=== PATIENT | male | born 1955 | race Caucasian/White ===

== ENCOUNTER 2017-11-02 11:00 | Day surgery (SDC) | payer MEDICARE ==
[2017-10-25 11:45] VITALS: BMI 25.0
[~2017-11-02 11:00] MED LIST: ALPRAZolam 0.25 MG TAB PO PRN; ASPIRIN 325 MG TAB PO STA; SODIUM CHLORIDE 0.9% 1,000 ML in EMPTY BAG 1 BAG IV ONE
[2017-11-02 11:35] LABS: Basophils % (A) 0 %; Eosinophils # (A) 0.1 k/uL (0-0.7); Eosinophils % (A) 1 %; HCT 43.1 % (39.0-53.0); HGB 14.4 gm/dL (13.0-17.5); Lymphocytes # (A) 1.1 k/uL (1.0-4.8); Lymphocytes % (A) 11 %; MCH 33.4 pg (25.0-35.0); MCHC 33.4 g/dL (31.0-37.0); Macrocytosis Slight; Mean Platelet Volume 7.7; Monocytes # (A) 0.6 k/uL (0-1.0); Monocytes % (A) 6 %; Neutrophils # (A) 8.1 k/uL (1.3-7.7); Neutrophils % (A) 80 %; Platelet Count 150 k/uL (150-450); RBC 4.31 m/uL (4.30-5.90); RDW 14.6 % (11.5-15.5); WBC 10.1 k/uL (3.8-10.6)
[2017-11-02] MEDS ORDERED: HYDROmorphone 1 MG/ML 1 ML SYRINGE ONE (11:35)
[2017-11-02 11:50] LABS: Anion Gap 6 mmol/L; Blood Urea Nitrogen 6 mg/dL (9-20); Carbon Dioxide 28 mmol/L (22-30); Chloride 96 mmol/L (98-107); Glucose 104 mg/dL (74-99); Potassium 4.4 mmol/L (3.5-5.1); Sodium 130 mmol/L (137-145)
[2017-11-02] MEDS ORDERED: LIDOCAINE 2% INJ 20 MG/ML IV ONE (11:58)
[2017-11-02] MEDS ORDERED: MIDAZOLAM 2 MG/2 ML VIAL IV ONE (11:59)
[2017-11-02] MEDS ORDERED: fentaNYL (PF) 50 MCG/ML 2 ML AMP IV ONE (12:12)
[2017-11-02] MEDS ORDERED: IOHEXOL 350 MG/ML 125ML BOTTLE INJ ONE (12:21)
[2017-11-02] MEDS ORDERED: SODIUM CHLORIDE 0.9% 1,000 ML IV SCH (12:30)
--- NOTE | 2017-11-02 12:51 | AN ---
ANGIOGRAPHY REPORT DATE OF SERVICE: 11/02/2017 PERFORMING PHYSICIAN: Trevin Esqueda MD, Caddy. PROCEDURES PERFORMED: 1. An abdominal aortogram. 2. Bilateral lower extremities runoff. INDICATION: This is a pleasant 62-year-old gentleman who is known to have peripheral arterial disease and he used to follow up with me in the office and he underwent in the past successful balloon angioplasty of the right SFA for totally occluded right SFA, was struggling with a critical limb ischemia and nonhealing ulcer involving the left mari and left heel. He is following with Dr. Garcia [facility]. The peripheral angiogram was requested for further evaluation. APPROACH: Right common femoral artery. COMPLICATION: None. LEVEL OF SEDATION: Moderate with sedation length of 27 minutes. PROCEDURE DESCRIPTION: After obtaining an informed consent, the patient was brought to the [facility]. The right common femoral artery was cannulated using micropuncture technique, the micropuncture wire passed easily, then I placed a 5-Yemeni sheath in the right common femoral artery. After that, I did an abdominal aortogram and bilateral lower extremities runoff using 5-Yemeni pigtail catheter which was initially placed at the level of the renal arteries and it was pulled into above the bifurcation of the aorta to right and left common iliac arteries. The procedure was completed without any complication. SELECTIVE PERIPHERAL ANGIOGRAM: 1. The abdominal aorta is heavily calcified with mild disease only. 2. COMMON ILIAC ARTERIES: The right and left common iliac arteries appear to have mild disease only. 3. EXTERNAL ILIAC ARTERIES: The right external iliac artery appeared to have a lesion in the range of 60% to 70% and the left external iliac artery appeared to have a lesion in the range of 70%. 4. INTERNAL ILIAC ARTERIES: The right internal iliac artery is patent and the left internal iliac artery is occluded. 5. COMMON FEMORAL ARTERIES: The right common femoral artery appeared to be subtotally occluded and the left common femoral artery appeared to be subtotally occluded as well. 6. PROFUNDA: The right profunda is patent and the left profunda is occluded. 7. SFA: The right SFA is heavily calcified with diffuse disease up to about 70% to 80% and the left SFA appeared to be occluded from the ostium to the proximal portion. 8. POPLITEAL: The right and left popliteal appeared to have mild to moderate diffuse disease. 9. BELOW THE KNEE: There are 3 vessels runoff below the knee on the right side and 1 vessel runoff below the knee on the left side with AT. CONCLUSION: 1. 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 2. Severe femoral-popliteal disease with severe bilateral common femoral artery disease. 3. Severe bilateral SFA disease. 4. Severe ofuej-jat-sxyl disease on the left side. POSTPROCEDURE MANAGEMENT: 1. At this point, maximize medical treatment. 2. I do feel that the patient will benefit from MINESWEEPING OFFICER of the of the left external iliac and left femoral artery. The alternative is to do a MINESWEEPING OFFICER of the left external iliac and endarterectomy of the left common femoral artery. MMODL / IJN: [id number] /
--- NOTE | 2017-11-02 13:00 | IR ---
EXAMINATION TYPE: IR angio abdominal w runoff DATE OF EXAM: 11/02/2017 COMPARISON: NONE HISTORY: Peripheral vascular occlusive disease. Fluoroscopy was provided to the referring clinician. See dictated report from cardiology.
[2017-11-02 16:35] VITALS: TEMP 98.9
[2017-11-02 16:46] VITALS: BP 152/69; PULSE 63; RESP 18
== END 2017-11-02 17:00 | disposition home or self-care (01) ==
LOC: CATHCVL 11:00
PROVIDERS: ATTEND Internal Medicine Interventional Cardiology
DX: I70.229 Atherosclerosis of native arteries of extremities with rest pain, unspecified extremity (principal); L97.429 Non-pressure chronic ulcer of left heel and midfoot with unspecified severity; L97.829 Non-pressure chronic ulcer of other part of left lower leg with unspecified severity; I70.0 Atherosclerosis of aorta; I77.9 Disorder of arteries and arterioles, unspecified; R94.39 Abnormal result of other cardiovascular function study; I10 Essential (primary) hypertension; F17.210 Nicotine dependence, cigarettes, uncomplicated; Z79.899 Other long term (current) drug therapy
CPT/HCPCS: 36200; 75625; 75716; 80048; 85025; C1894; C1769 ×4; J2001; J2250; J3010; J1170; Q9967

== ENCOUNTER 2017-12-04 07:58 | Day surgery (SDC) | payer MEDICARE ==
[2017-11-30 09:56] VITALS: BMI 25.0
[~2017-12-04 07:58] MED LIST changes: +ALPRAZolam 0.5 MG TAB PO PRN; +NITROGLYCERIN SL TABS 0.4 MG TAB SUBLINGUAL PRN
[2017-12-04] MEDS ORDERED: ASPIRIN 81 MG ONE (08:17)
[2017-12-04 08:28] LABS: Basophils % (A) 0 %; Eosinophils # (A) 0.1 k/uL (0-0.7); Eosinophils % (A) 1 %; HCT 33.6 % (39.0-53.0); HGB 11.8 gm/dL (13.0-17.5); Lymphocytes # (A) 0.8 k/uL (1.0-4.8); Lymphocytes % (A) 8 %; MCH 34.6 pg (25.0-35.0); MCHC 35.1 g/dL (31.0-37.0); MCV 98.5 fL (80.0-100.0); Mean Platelet Volume 7.1; Monocytes # (A) 0.8 k/uL (0-1.0); Monocytes % (A) 8 %; Neutrophils # (A) 8.8 k/uL (1.3-7.7); Neutrophils % (A) 82 %; Platelet Count 204 k/uL (150-450); RBC 3.41 m/uL (4.30-5.90); RDW 12.8 % (11.5-15.5); WBC 10.8 k/uL (3.8-10.6)
[2017-12-04 09:11] LABS: Anion Gap 10 mmol/L; Blood Urea Nitrogen 8 mg/dL (9-20); Calcium 8.5 mg/dL (8.4-10.2); Carbon Dioxide 24 mmol/L (22-30); Chloride 92 mmol/L (98-107); Glucose 124 mg/dL (74-99); Potassium 4.1 mmol/L (3.5-5.1); Sodium 126 mmol/L (137-145)
[2017-12-04] MEDS: MIDAZOLAM 2 MG/2 ML VIAL IV ONE ×2 (09:20→10:23)
[2017-12-04] MEDS ORDERED: fentaNYL (PF) 50 MCG/ML 2 ML AMP IV ONE (09:20)
[2017-12-04] MEDS ORDERED: IOHEXOL 350 MG/ML 125ML BOTTLE INJ ONE (10:44)
[2017-12-04] MEDS ORDERED: IODIXANOL 320 MG/ML 100 ML INTRAARTER ONE (10:44)
[2017-12-04] MEDS ORDERED: RX INFO: IV CONTRAST WAS GIVEN 1 EACH MISC MISCELLANE PRN (10:53)
[2017-12-04] MEDS ORDERED: SODIUM CHLORIDE 0.9% 1,000 ML IV SCH (11:00)
--- NOTE | 2017-12-04 11:09 | IR ---
EXAMINATION TYPE: IR angio extremity LT DATE OF EXAM: 12/04/2017 COMPARISON: NONE HISTORY: Peripheral vascular occlusive disease. Fluoroscopy was provided to the referring clinician. See dictated report from cardiology.
[2017-12-04] MEDS ORDERED: NICOTINE 21MG/24HR PATCH TRANSDERM STA (11:13)
[2017-12-04] MEDS ORDERED: hydrALAZINE HCL 20 MG/ML 1 ML VIAL IVP STA (11:36)
--- NOTE | 2017-12-04 11:44 | CC ---
CARDIAC CATHETERIZATION REPORT DATE OF SERVICE: 12/04/2017 PERFORMING PHYSICIAN: Trevin Esqueda MD, real estate services coordinator. PROCEDURE PERFORMED: 1. Selective right and left coronary angiogram. 2. Left heart catheterization. INDICATION: This is a pleasant 62-year-old gentleman who is known to have severe underlying peripheral arterial disease and known critical limb ischemia of the left leg as well as hypertension and dyslipidemia, and history of smoking, underwent a stress test as an outpatient and that revealed ischemia. In view of that, a heart catheterization was recommended. APPROACH: Right brachial artery. COMPLICATION: None. LEVEL OF SEDATION: Moderate with sedation length of 13 minutes. PROCEDURE DESCRIPTION: After obtaining an informed consent, the patient was brought to the cardiac pathology lab technician. The right brachial artery was cannulated using micropuncture technique under ultrasound guidance. The micropuncture wire passed easily then I placed a 6-Mohawk sheath 11 cm in the right brachial artery. At that point, I did start anticoagulation using heparin and the patient was given 8000 units of heparin IV. Selective right and left coronary angiogram was performed using JR4 and JL4 catheters. Left heart catheterization was performed using 6-Mohawk pigtail catheter. The procedure was completed without any complication. SELECTIVE CORONARY ANGIOGRAM: 1. The RCA is a large caliber vessel. It is a dominant vessel. The RCA is calcified. The proximal portion appeared to have mild disease only. The mid RCA has intermediate lesion in the range of 50%. The RCA distally has mild disease only and bifurcates into PDA and PLV branches, both have mild disease only. 2. The left main is a long left main with distal disease in the range of 30%. It bifurcates into left circumflex, ramus intermedius, and left anterior descending artery. 3. The left circumflex is a medium caliber vessel. It is a nondominant vessel. The ostial left circumflex has disease appeared to be in the range of 50% only. 4. The ramus intermedius is a medium caliber vessel with mild disease only. 5. The LAD: The proximal LAD appeared to have mild disease only. The mid LAD appeared to have mild disease only as well. The LAD distally appeared to be angiographically normal and the LAD does not reach the apex. It gives rise into a large diagonal branch in the midportion and that diagonal branch appeared to have mild disease only. HEMODYNAMICS: The left ventricular end-diastolic pressure was 12 mmHg and no gradient was identified across the aortic valve. CONCLUSION: 1. Calcified right and left coronary system. 2. Intermediate triple-vessel coronary artery disease. 3. Normal left ventricular end-diastolic pressure. POSTPROCEDURE MANAGEMENT: 1. Maximize medical treatment. 2. Follow up with the patient. MANJU / SOCO: [id number] /
[2017-12-04] MEDS: traMADol 50 MG TAB PO PRN ×2 (12:17→17:01)
--- NOTE | 2017-12-04 12:20 | LTR ---
December 04, 2017 Re: Froy Gee Dear Dr. Harrell: As we discussed on the phone, Mr. Froy Gee underwent a heart catheterization and that showed intermediate triple-vessel coronary artery disease and no need for any angioplasty or stenting at this point. Beside that, he underwent a peripheral angiogram which showed intermediate disease involving the left external iliac artery with critical disease involving the left common femoral artery. He is going to undergo left common femoral endarterectomy by Dr. Get Khan in the next few days. I want to thank you for allowing me to participate in his care. Sincerely, Trevin Esqueda MD MMGELYL / SOCO: [id number] /
[2017-12-04] MEDS ORDERED: hydrALAZINE HCL 20 MG/ML 1 ML VIAL IVP PRN (16:34)
--- NOTE | 2017-12-04 16:44 | AN ---
ANGIOGRAPHY REPORT DATE OF SERVICE: 12/04/2017. PERFORMING PHYSICIAN: Trevin Esqueda MD, manager facility. PROCEDURE PERFORMED: 1. Selective left external iliac artery angiogram. 2. Gradient measurement across the left external iliac artery. INDICATIONS: This is a pleasant 62-year-old gentleman who was struggling with critical limb ischemia and nonhealing ulcer on the left foot. He underwent an abdominal aortogram and bilateral lower extremities runoff a few weeks ago and that showed intermediate to severe lesion involving the left external iliac artery as well as critical lesion of the left common femoral artery. Beside that, he was found to have intermediate to severe lesion involving the left SFA. Initially, he was scheduled to undergo a hybrid procedure involving left common femoral endarterectomy with left iliac stenting and left SFA atherectomy and balloon angioplasty. The patient did not show to the procedure. Beside that he underwent a stress test as an outpatient and that revealed ischemia. He was brought today to undergo a heart catheterization. After the heart catheterization, to take a further look on the left external iliac artery. APPROACH: Right brachial artery. COMPLICATION: None. LEVEL OF SEDATION: Moderate with sedation length of 60 minutes. PROCEDURE DESCRIPTION: After diagnostic heart catheterization was performed, I did advance an 035 wire to the descending aorta. Subsequently I did wire the lesion in the left external iliac artery using a [place] Advantage wire and the wire was advanced all the way to the left femoral artery. Subsequently I did exchange my 11 cm 6-Norwegian sheath into 110 cm 6-Norwegian sheath over the [place] Advantage wire. After that, I did cross the lesion in the left external iliac artery using an 0.035 Quick-Cross catheter. After that, we did a gradient measurement across the lesion in the left external iliac artery and that gradient turned to be at 5 mmHg, which was none significant. The lesion in the left external iliac artery was intermediate only. At that point, I decided not to pursue any intervention on the left external iliac artery. CONCLUSION: 1. Intermediate disease involving calcified left external iliac artery. 2. Gradient measurement was performed across the lesion and came in to be nonischemic. POSTPROCEDURE MANAGEMENT: The patient will be scheduled to undergo femoral endarterectomy of the left common femoral artery by . MMODL / IJN: [id number] /
[2017-12-04 17:35] VITALS: RESP 18; TEMP 100.3
[2017-12-04 19:37] VITALS: BP 152/67; PULSE 88
== END 2017-12-04 20:05 | disposition home or self-care (01) ==
LOC: CATHCVL 07:58 → 3OBS 10:35 → CATHCVL 20:05
PROVIDERS: ATTEND Internal Medicine Interventional Cardiology
DX: I70.245 Atherosclerosis of native arteries of left leg with ulceration of other part of foot (principal); L97.529 Non-pressure chronic ulcer of other part of left foot with unspecified severity; I25.10 Atherosclerotic heart disease of native coronary artery without angina pectoris; I77.9 Disorder of arteries and arterioles, unspecified; R94.39 Abnormal result of other cardiovascular function study; I10 Essential (primary) hypertension; E78.00 Pure hypercholesterolemia, unspecified; F17.210 Nicotine dependence, cigarettes, uncomplicated; Z79.899 Other long term (current) drug therapy
CPT/HCPCS: 36246; 93458; 75736; 85347; 80048; 85025; C1894 ×2; C1769 ×3; C1887; S4990; J2250; J0360; Q9967 ×2; J3010; J1644

== ENCOUNTER 2017-12-25 10:58 | Day surgery (SDC) | payer MEDICARE ==
[2017-12-21 13:24] VITALS: BMI 25.7
[~2017-12-25 10:58] MED LIST changes: -ALPRAZolam 0.25 MG TAB PO PRN; -ALPRAZolam 0.5 MG TAB PO PRN; -ASPIRIN 325 MG TAB PO STA; +DEXAMETHASONE SOD PHOSPHATE 10 MG/ML 1 ML VIAL IV ONE; +HYDROmorphone 0.5 MG/0.5 ML SYRINGE IVP PRN; +LACTATED RINGERS 1,000 ML IV SCH; -NITROGLYCERIN SL TABS 0.4 MG TAB SUBLINGUAL PRN; +ONDANSETRON 4 MG/2 ML VIAL IVP ONE; +Pre Op ABX Message 1 EACH MISC MISCELLANE ONE; -SODIUM CHLORIDE 0.9% 1,000 ML in EMPTY BAG 1 BAG IV ONE
[2017-12-25] MEDS ORDERED: LACTATED RINGERS 1,000 ML IV ONE (11:14)
[2017-12-25] MEDS ORDERED: LIDOCAINE 1% 20 ML VIAL (10MG/ML) FOR IV START INTRADERMA ONE (11:17)
[2017-12-25] MEDS ORDERED: LIDOCAINE 1% INJ 10MG/ML (20 ML MDV) ONE (12:10)
[2017-12-25] MEDS ORDERED: PROPOFOL 10 MG/ML 20 ML VIAL IV ONE (12:10)
[2017-12-25] MEDS ORDERED: fentaNYL (PF) 50 MCG/ML 2 ML AMP ONE (12:10)
[2017-12-25] MEDS ORDERED: GLYCOPYRROLATE 0.2 MG/ML 2 ML VIAL ONE (12:10)
[2017-12-25] MEDS ORDERED: KETAMINE 10 MG/ML 20 ML VIAL ONE (12:10)
[2017-12-25] MEDS ORDERED: diphenhydrAMINE 50 MG/ML 1 ML VIAL ONE (12:10)
[2017-12-25] MEDS ORDERED: MIDAZOLAM 2 MG/2 ML VIAL ONE (12:10)
--- NOTE | 2017-12-25 12:18 | P.GSHP ---
History of Present Illness H&P Date: 12/25/17 Chief Complaint: Bilateral foot necrosis. The patient is post bilateral revascularizations. He has had further necrosis on the areas of the lateral aspect of the right foot and medial aspect of the left foot. These required significant debridement. - Constitutional Constitutional: Reports chronic pain, Reports weakness, Denies chills, Denies fever - EENT Eyes: denies blurred vision, denies pain Ears, nose, mouth and throat: Denies headache, Denies sore throat - Cardiovascular Cardiovascular: Denies chest pain, Denies dyspnea on exertion, Denies edema, Denies orthopnea, Denies paroxysmal nocturnal dyspnea, Denies shortness of breath - Respiratory Respiratory: Reports cough, Denies hemoptysis - Gastrointestinal Gastrointestinal: Denies abdominal pain, Denies coffee ground emesis, Denies diarrhea, Denies hematemesis, Denies hematochezia, Denies jaundice, Denies melena, Denies nausea, Denies vomiting - Genitourinary (Female) Genitourinary: Denies dysuria, Denies hematuria - Genitourinary (Male) Genitourinary: Denies dysuria, Denies hematuria - Musculoskeletal Comment: Patient has difficulty walking with bilateral gangrenous changes in the feet. Musculoskeletal: Denies myalgias - Integumentary Comment: Bilateral foot ulcers as described Integumentary: Denies pruritus, Denies rash - Neurological Neurological: Denies convulsions, Denies numbness, Denies paralysis, Denies syncope, Denies tremors, Denies weakness - Psychiatric Psychiatric: Reports anxiety, Reports depression, Reports irritability - Endocrine Endocrine: Denies fatigue, Denies weight change - Hematologic/Lymphatic Hematologic/Lymphatic: Denies easy bleeding, Denies easy bruising, Denies lymphedema - Allergic/Immunologic Allergic/Immunologic: Denies anaphylaxis, Denies angioedema, Denies urticaria Past Medical History Past Medical History: Hypertension, Vascular Disorder Additional Past Medical History / Comment(s): PVD, Wounds carmen feet History of Any Multi-Drug Resistant Organisms: None Reported Past Surgical History: Heart Catheterization, Hernia Repair Additional Past Surgical History / Comment(s): Wound center pt. Right axillary cyst removed, arteriogram, fissure corrected between bladder and colon. FEM POP BYPASS, 3 STENTS, AMPUTATION 4TH AND 5TH TOES RIGHT FOOT 12/08/17 Past Anesthesia/Blood Transfusion Reactions: No Reported Reaction Smoking Status: Current every day smoker - Past Family History Father Family Medical History: Myocardial Infarction ([place]) Additional Family Medical History / Comment(s): . Mother Family Medical History: Cancer Brother(s) Family Medical History: Cancer Medications and Allergies Home Medications Medication Instructions Recorded Confirmed Type Metoprolol Tartrate [Lopressor] 50 mg PO QAM 10/14/14 12/21/17 History Garlic 1 tab PO QAM 03/02/15 12/21/17 History Milk Thistle (500 Mg 1 tab PO QAM 03/02/15 12/21/17 History Multivitamin [Men's Multi-Vitamin] 1 tab PO QAM 03/02/15 12/21/17 History Acetaminophen Tab [Tylenol] 1,000 mg PO Q4HR 10/11/17 12/21/17 History Lisinopril [Zestril] 5 mg PO QAM 10/25/17 12/21/17 History traMADol HCl [Ultram] 50 mg PO Q6H PRN 12/04/17 12/21/17 History Aspirin 325 mg PO DAILY #1 tab 12/09/17 12/21/17 Rx Clopidogrel [Plavix] 75 mg PO DAILY #1 tablet 12/09/17 12/21/17 Rx Furosemide [Lasix] 20 mg PO DAILY 12/20/17 12/21/17 History Amoxicillin/Potassium Clav 1 tab PO Q12HR 12/21/17 12/21/17 History [Augmentin 875-125 Tablet] Allergies Allergy/AdvReac Type Severity Reaction Status Date / Time No Known Allergies Allergy Verified 12/21/17 13:27 Surgical - Exam Osteopathic Statement: *. No significant issues noted on an osteopathic structural exam other than those noted in the History and Physical/Consult. Vital Signs Temp Pulse Resp BP Pulse Ox 98.1 F 61 18 150/77 99 12/25/17 11:13 12/25/17 11:13 12/25/17 11:13 12/25/17 11:13 12/25/17 11:13 - General well developed, well nourished, no distress - Eyes normal ocular movement, no icteric - ENT no hearing loss, no congestion - Neck no masses, no bruits, trachea midline - Respiratory normal expansion, normal respiratory effort, clear to auscultation - Cardiovascular Rhythm: regular - Abdomen Abdomen: soft, non tender, no guarding, no rigid, no rebound - Integumentary Ulcerations lateral right foot and medial left foot with gangrenous changes. no rash, no abnormal pigmentation - Neurologic no disoriented, no combative - Musculoskeletal Difficulty walking secondary to ischemic changes in both feet - Psychiatric oriented to time, oriented to person, oriented to place, speech is normal, memory intact Assessment and Plan (1) Atherosclerosis of [place] arteries of right leg with ulceration of other part of foot Current Visit: Yes Status: Acute Code(s): I70.235 - ATHSCL [place] ARTERIES OF RIGHT LEG W ULCER OTH PRT FOOT SNOMED Code(s): 397859254660558 (2) Atherosclerosis of [place] arteries of left leg with ulceration of other part of foot Current Visit: Yes Status: Acute Code(s): I70.245 - ATHSCL [place] ARTERIES OF LEFT LEG W ULCERATION OTH PRT FOOT SNOMED Code(s): 998042750300829 Plan: Patient is admitted for extensive debridements of both feet. We've discussed with the patient issues in regards to potential limb loss.
--- NOTE | 2017-12-25 13:04 | P.WCSRGD ---
Wound Ctr Surgical Debridement Date of service: 12/25/2017 Surgeon: Jose Pre-and postop diagnosis: Ulcerations bilateral feet secondary to lower extremity occlusive disease Type of debridement: Excisional surgical including tendon on the left and bone on the right. Chief complaint: ulcer of posterior left foot and ankle and medial distal right forefoot Anesthesia: MAC with IV sedation Signs of infection: Redness and mild purulence Extent of necrotic, devitalized or non-viable tissue: [place]rera necrotic tissue, slough, nonviable soft tissue and skin and exposed bone on the right. Necrotic nonviable Achilles tendon on the left as well as slough and nonviable soft tissue. Other material in the wound that is expected to inhibit healing or promote adjacent tissue breakdown: Same Degree of epithelialization: % Method and instrument: Surgical debridement with scalpel, sharp curette, and Abdoul or. Character of the wound after debridement: Clean bloody subcutaneous bed bilaterally Description of necrotic material present: Necrotic Achilles tendon on the left and nonviable soft tissue and slough. Nonviable soft tissue, slough , and exposed bone on the right. Description of tissue removed: Same Pre-debridement measurement: On the right it started at 6 x 3 and on the left it started at 5 x 6 cm and 0.5 on the right and 0.5 on the left cm in depth Postoperative debridement measurement: 6.8 x 3.5 on the right and 5.4 x 6.2 on the left cm and 0.8 on the left and 1.2 on the right cm in depth Control of bleeding: Was accomplished with direct pressure and pinpoint electrocautery Post debridement dressing: Absorptive silver gauze sponges and Meir wrap's Patient tolerated procedure well
[2017-12-25 13:14] VITALS: TEMP 97
[2017-12-25 13:28] VITALS: RESP 16
[2017-12-25 15:00] VITALS: BP 188/77; PULSE 73
[2017-12-25] MEDS ORDERED: ACETAMINOPHEN TAB 325 MG TAB PO ONE (15:08)
== END 2017-12-25 15:39 | disposition home or self-care (01) ==
LOC: OR 10:58
PROVIDERS: ATTEND Thoracic Surgery (Cardiothoracic Vascular Surgery)
DX: I70.245 Atherosclerosis of native arteries of left leg with ulceration of other part of foot (principal); I70.235 Atherosclerosis of native arteries of right leg with ulceration of other part of foot; L97.523 Non-pressure chronic ulcer of other part of left foot with necrosis of muscle; L97.514 Non-pressure chronic ulcer of other part of right foot with necrosis of bone; I77.9 Disorder of arteries and arterioles, unspecified; I10 Essential (primary) hypertension; Z79.2 Long term (current) use of antibiotics; Z79.02 Long term (current) use of antithrombotics/antiplatelets; Z79.82 Long term (current) use of aspirin; Z79.899 Other long term (current) drug therapy; F17.210 Nicotine dependence, cigarettes, uncomplicated
CPT/HCPCS: 11043; 11046; 11044; 11047; J2250; J1200; J1100; J2405; J2001; J3010; J2704

== ENCOUNTER 2018-01-17 13:20 | Day surgery (SDC) | payer MEDICARE ==
[2018-01-16 08:34] VITALS: BMI 25.7
--- NOTE | 2018-01-17 12:30 | P.GSHP ---
History of Present Illness H&P Date: 01/17/18 Chief Complaint: Bilateral foot ulcers This patient has bilateral ischemic ulcers of the foot. He is status post bilateral femoral endarterectomy with patch angioplasty. He has had significant improvement of his ulcers however they require more thorough debridement then can be done without sedation due to pain. - Constitutional Constitutional: Reports weakness, Denies chills, Denies fever - EENT Eyes: denies blurred vision, denies pain Ears, nose, mouth and throat: Denies headache, Denies sore throat - Cardiovascular Cardiovascular: Denies chest pain, Denies orthopnea, Denies paroxysmal nocturnal dyspnea, Denies shortness of breath - Respiratory Respiratory: Reports cough, Reports cough with sputum, Denies hemoptysis - Gastrointestinal Gastrointestinal: Denies abdominal pain, Denies diarrhea, Denies nausea, Denies vomiting - Genitourinary (Female) Genitourinary: Denies dysuria, Denies hematuria - Genitourinary (Male) Genitourinary: Denies dysuria, Denies hematuria - Musculoskeletal Musculoskeletal: Denies myalgias - Integumentary Integumentary: Denies pruritus, Denies rash - Neurological Neurological: Denies convulsions, Denies numbness, Denies paralysis, Denies syncope, Denies tremors, Denies weakness - Psychiatric Psychiatric: Reports anxiety, Denies confusion, Denies depression, Denies hallucinations - Endocrine Endocrine: Denies fatigue, Denies weight change - Hematologic/Lymphatic Hematologic/Lymphatic: Denies easy bleeding, Denies easy bruising, Denies lymphedema - Allergic/Immunologic Allergic/Immunologic: Denies anaphylaxis, Denies angioedema, Denies urticaria Past Medical History Past Medical History: Hypertension, Vascular Disorder Additional Past Medical History / Comment(s): PVD, Wounds carmen feet History of Any Multi-Drug Resistant Organisms: None Reported Past Surgical History: Heart Catheterization, Hernia Repair Additional Past Surgical History / Comment(s): Wound center pt. Right axillary cyst removed, arteriogram, fissure corrected between bladder and colon. FEM POP BYPASS, 3 STENTS, AMPUTATION 4TH AND 5TH TOES RIGHT FOOT 12/08/17, recent debridement in . Past Anesthesia/Blood Transfusion Reactions: No Reported Reaction Smoking Status: Current every day smoker - Past Family History Father Family Medical History: Myocardial Infarction ([place]) Additional Family Medical History / Comment(s): . Mother Family Medical History: Cancer Brother(s) Family Medical History: Cancer Medications and Allergies Home Medications Medication Instructions Recorded Confirmed Type Metoprolol Tartrate [Lopressor] 50 mg PO QAM 10/14/14 01/16/18 History Garlic 1 tab PO QAM 03/02/15 01/16/18 History Milk Thistle (500 Mg 1 tab PO QAM 03/02/15 01/16/18 History Multivitamin [Men's Multi-Vitamin] 1 tab PO QAM 03/02/15 01/16/18 History Acetaminophen Tab [Tylenol] 1,000 mg PO Q4HR 10/11/17 01/16/18 History Lisinopril [Zestril] 5 mg PO QAM 10/25/17 01/16/18 History traMADol HCl [Ultram] 50 mg PO Q6H PRN 12/04/17 01/16/18 History Aspirin 325 mg PO DAILY #1 tab 12/09/17 01/16/18 Rx Clopidogrel [Plavix] 75 mg PO DAILY #1 tablet 12/09/17 01/16/18 Rx Furosemide [Lasix] 20 mg PO DAILY 12/20/17 01/16/18 History Allergies Allergy/AdvReac Type Severity Reaction Status Date / Time No Known Allergies Allergy Verified 01/16/18 09:01 Surgical - Exam Osteopathic Statement: *. No significant issues noted on an osteopathic structural exam other than those noted in the History and Physical/Consult. - General well developed, well nourished, no distress - Eyes normal ocular movement, no icteric - ENT no hearing loss, no congestion - Neck no masses, trachea midline - Respiratory normal respiratory effort bilateral: rales - Cardiovascular Rhythm: regular - Abdomen Abdomen: soft, non tender, no guarding, no rigid, no rebound - Integumentary Patient has open wounds on the lateral right foot and the posterior left ankle. no rash, no abnormal pigmentation - Neurologic no disoriented, no combative - Psychiatric oriented to time, oriented to person, oriented to place, speech is normal, memory intact Assessment and Plan (1) Atherosclerosis of [place] arteries of left leg with ulceration of calf Status: Acute Code(s): I70.242 - ATHSCL [place] ARTERIES OF LEFT LEG W ULCERATION OF CALF SNOMED Code(s): 035002238779954 (2) Atherosclerosis of [place] arteries of right leg with ulceration of other part of foot Status: Acute Code(s): I70.235 - ATHSCL [place] ARTERIES OF RIGHT LEG W ULCER OTH PRT FOOT SNOMED Code(s): 723724530639987 Plan: Patient is admitted for surgical debridement with anesthetic of the lateral right foot and posterior left ankle. Patient will require IV sedation. It should be noted that the patient is an ongoing heavy drinker and smoker.
[~2018-01-17 13:20] MED LIST changes: -DEXAMETHASONE SOD PHOSPHATE 10 MG/ML 1 ML VIAL IV ONE; -ONDANSETRON 4 MG/2 ML VIAL IVP ONE; +ONDANSETRON 4 MG/2 ML VIAL IVP PRN
[2018-01-17 13:49] VITALS: RESP 18; TEMP 98.8
[2018-01-17] MEDS ORDERED: FAMOTIDINE 20 MG/2 ML VIAL ONE (13:53)
[2018-01-17] MEDS ORDERED: LIDOCAINE 1% 20 ML VIAL (10MG/ML) FOR IV START INTRADERMA ONE (13:56)
[2018-01-17] MEDS ORDERED: FAMOTIDINE 20 MG/2 ML VIAL IV ONE (13:58)
[2018-01-17] MEDS ORDERED: PROPOFOL 10 MG/ML 20 ML VIAL IV ONE (14:12)
[2018-01-17] MEDS ORDERED: KETAMINE 10 MG/ML 20 ML VIAL ONE (14:12)
[2018-01-17] MEDS ORDERED: MIDAZOLAM 2 MG/2 ML VIAL ONE (14:12)
[2018-01-17] MEDS ORDERED: fentaNYL (PF) 50 MCG/ML 2 ML AMP ONE (14:12)
--- NOTE | 2018-01-17 15:11 | P.WCSRGD ---
Wound Ctr Surgical Debridement Date of service: 01/17/2018 Surgeon: Jose Pre-and postop diagnosis: Ischemic ulcers bilateral feet and left lower leg Type of debridement: Excisional surgical Chief complaint: ulcer of lateral distal right forefoot and right heel. Left lower leg over Achilles tendon and posterior left heel Anesthesia: Heavy IV sedation in the OR Signs of infection: Mild redness Extent of necrotic, devitalized or non-viable tissue: Nonviable soft tissue, tendon, slough Other material in the wound that is expected to inhibit healing or promote adjacent tissue breakdown: Same Degree of epithelialization: % Method and instrument: Surgical debridement with scalpel and sharp curettes Character of the wound after debridement: Bloody subcutaneous bed Description of necrotic material present: Slough, nonviable soft tissue and nonviable tendon Description of tissue removed: Same Pre-debridement measurement: Lateral right foot 6.7 x 2.5, right heel 2.8 x 1.9 , left lower leg 5 x 4.5 left heel 4.5 x 2.6 cm and 0.8, 0.2, 0.4, and 0.2 cm in depth respectively Postoperative debridement measurement: 7 x 3, 3 x 2, 8 x 5, and 5 x 3 cm respectively and 1, 0.2, 0.5, and 0.3 cm in depth respectively Control of bleeding:Bleeding was easily controlled with saline moistened gauze and light pressure Post debridement dressing: Absorptive silver and Meir wrap's Patient tolerated procedure well
[2018-01-17 15:39] VITALS: BP 160/90; PULSE 60
== END 2018-01-17 15:50 | disposition home or self-care (01) ==
LOC: OR 13:20
PROVIDERS: ATTEND Thoracic Surgery (Cardiothoracic Vascular Surgery)
DX: I70.244 Atherosclerosis of native arteries of left leg with ulceration of heel and midfoot (principal); L97.423 Non-pressure chronic ulcer of left heel and midfoot with necrosis of muscle; I70.248 Atherosclerosis of native arteries of left leg with ulceration of other part of lower leg; L97.823 Non-pressure chronic ulcer of other part of left lower leg with necrosis of muscle; I70.234 Atherosclerosis of native arteries of right leg with ulceration of heel and midfoot; L97.413 Non-pressure chronic ulcer of right heel and midfoot with necrosis of muscle; I10 Essential (primary) hypertension; I25.10 Atherosclerotic heart disease of native coronary artery without angina pectoris; Z79.2 Long term (current) use of antibiotics; Z79.02 Long term (current) use of antithrombotics/antiplatelets; Z79.899 Other long term (current) drug therapy; Z79.82 Long term (current) use of aspirin; F17.210 Nicotine dependence, cigarettes, uncomplicated
CPT/HCPCS: 11043; 11046 ×4; J2250; J2405; J3010; J2704

== ENCOUNTER 2018-01-30 09:34 | Day surgery (SDC) | payer MEDICARE ==
[2018-01-29 09:04] VITALS: BMI 25.7
[~2018-01-30 09:34] MED LIST changes: +ALPRAZolam 0.25 MG TAB PO PRN; +ASPIRIN 325 MG TAB PO STA; -HYDROmorphone 0.5 MG/0.5 ML SYRINGE IVP PRN; -LACTATED RINGERS 1,000 ML IV SCH; -ONDANSETRON 4 MG/2 ML VIAL IVP PRN; -Pre Op ABX Message 1 EACH MISC MISCELLANE ONE; +SODIUM CHLORIDE 0.9% 1,000 ML in EMPTY BAG 1 BAG IV ONE
[2018-01-30 10:06] VITALS: TEMP 98.4
[2018-01-30 10:23] LABS: Anion Gap 10 mmol/L; Basophils % (A) 0 %; Blood Urea Nitrogen 7 mg/dL (9-20); Calcium 8.8 mg/dL (8.4-10.2); Carbon Dioxide 29 mmol/L (22-30); Chloride 96 mmol/L (98-107); Eosinophils # (A) 0.2 k/uL (0-0.7); Eosinophils % (A) 2 %; Glucose 119 mg/dL (74-99); HCT 32.5 % (39.0-53.0); HGB 10.7 gm/dL (13.0-17.5); Lymphocytes # (A) 1.7 k/uL (1.0-4.8); Lymphocytes % (A) 17 %; MCH 32.9 pg (25.0-35.0); MCHC 32.8 g/dL (31.0-37.0); MCV 100.4 fL (80.0-100.0); Mean Platelet Volume 7.6; Monocytes # (A) 0.6 k/uL (0-1.0); Monocytes % (A) 6 %; Neutrophils # (A) 7.5 k/uL (1.3-7.7); Neutrophils % (A) 74 %; Platelet Count 290 k/uL (150-450); Potassium 3.9 mmol/L (3.5-5.1); RBC 3.24 m/uL (4.30-5.90); RDW 13.1 % (11.5-15.5); Sodium 135 mmol/L (137-145); WBC 10.1 k/uL (3.8-10.6)
[2018-01-30] MEDS ORDERED: LIDOCAINE 2% INJ 20 MG/ML SQ ONE (11:31)
[2018-01-30] MEDS ORDERED: MIDAZOLAM 2 MG/2 ML VIAL IV ONE (11:32)
[2018-01-30] MEDS ORDERED: fentaNYL (PF) 50 MCG/ML 2 ML AMP IV ONE (11:33)
[2018-01-30] MEDS ORDERED: IODIXANOL 320 MG/ML 100 ML INTRAARTER ONE (11:43)
--- NOTE | 2018-01-30 12:15 | IR ---
EXAMINATION TYPE: IR angio abdominal w runoff DATE OF EXAM: 01/30/2018 COMPARISON: NONE HISTORY: Peripheral vascular occlusive disease. Fluoroscopy was provided to the referring clinician. See dictated report from cardiology.
[2018-01-30 14:38] VITALS: BP 135/63; PULSE 58; RESP 16
[2018-01-30] MEDS ORDERED: ACETAMINOPHEN TAB 325 MG TAB ONE (15:39)
--- NOTE | 2018-01-30 17:59 | AN ---
ANGIOGRAPHY REPORT DATE OF SERVICE: January 30, 2018 PERFORMING PHYSICIAN: Trevin Esqueda MD, biofuels production technician. PROCEDURE PERFORMED: 1. An abdominal aortogram. 2. Bilateral lower extremities runoff. INDICATION: This is a pleasant 62-year-old gentleman who is known to have peripheral arterial disease and underwent multiple peripheral angioplasty in the past including ENTERPRISE RECORDS ANALYST of the right SFA, and ENTERPRISE RECORDS ANALYST of the right iliac, as well as surgical revascularization in the terms of bilateral femoral endarterectomy continues to have a critical limb ischemia with nonhealing ulcers involving both feet. In view of that, a peripheral angiogram was recommended. APPROACH: Right common femoral artery. COMPLICATION: None. LEVEL OF SEDATION: Moderate with sedation length of 30 minutes. PROCEDURE DESCRIPTION: After obtaining an informed consent, the patient was brought to cardiac recyclable materials sorter. The right common femoral artery was cannulated using micropuncture technique and a micropuncture wire passed easily, then I placed a 6-Cypriot sheath in the right common femoral artery. After that, I did perform an abdominal aortogram and bilateral lower extremities runoff using 5-Cypriot pigtail catheter which was initially placed at the level of the renal arteries and it was pulled into above the bifurcation of the aorta to right and left common iliac arteries. The procedure was completed without any complication. SELECTIVE PERIPHERAL ANGIOGRAM: 1. The aorta has mild disease only and it is heavily calcified. 2. Common iliac arteries: The right common iliac artery appeared to have mild disease only and the left common iliac artery appeared to have mild disease only as well. 3. External iliac arteries: The right external iliac artery is stented and the stent is patent and the left external iliac artery appeared to have intermediate to severe lesion appeared to be in the range of 60% to 70%. 4. Common femoral arteries: Both common femoral arteries had patch angioplasty and endarterectomy and seems to be patent. 5. Profunda: Both profunda are patent. 6. The SFA: The right SFA is occluded at the proximal portion and reconstitutes in the mid to distal portion. The left SFA appeared to have diffuse mild to moderate disease. 7. Popliteal: The right and left popliteal appeared to have mild disease only. 8. Below the knee: There are 3 vessels runoff below the knee on the right with AT, PT and peroneal. On the left side, there is AT seems to be opened. The peroneal and PT seems to have severe diffuse disease in the proximal to midportion. CONCLUSION: 1. Moderate to severe lesion involving the left external iliac artery. 2. Patent bilateral femoral artery after patch angioplasty. 3. Occluded right SFA. 4. Severe wepva-pdc-hlvi disease on the left side. POSTPROCEDURE MANAGEMENT: 1. The patient will be scheduled to undergo a ENTERPRISE RECORDS ANALYST and stenting of the left external iliac artery. 2. He also will benefit from balloon angioplasty on the proximal right AT and PT was well on the right side. 3. Beside that, he needs to have a ENTERPRISE RECORDS ANALYST of the left SFA. 4. MMODL / IJN: [id number] /
== END 2018-01-30 17:15 | disposition home or self-care (01) ==
LOC: CATHCVL 09:34
PROVIDERS: ATTEND Internal Medicine Interventional Cardiology
DX: I77.9 Disorder of arteries and arterioles, unspecified (principal); I70.0 Atherosclerosis of aorta; Z95.820 Peripheral vascular angioplasty status with implants and grafts; L97.529 Non-pressure chronic ulcer of other part of left foot with unspecified severity; L97.519 Non-pressure chronic ulcer of other part of right foot with unspecified severity; I70.219 Atherosclerosis of native arteries of extremities with intermittent claudication, unspecified extremity; I25.10 Atherosclerotic heart disease of native coronary artery without angina pectoris; I10 Essential (primary) hypertension; E78.5 Hyperlipidemia, unspecified; I35.2 Nonrheumatic aortic (valve) stenosis with insufficiency; F17.210 Nicotine dependence, cigarettes, uncomplicated; Z79.02 Long term (current) use of antithrombotics/antiplatelets; Z79.82 Long term (current) use of aspirin; Z79.899 Other long term (current) drug therapy
CPT/HCPCS: 36200; 75625; 75716; 80048; 85025; C1894; C1769 ×4; J2001; J2250; Q9967; J3010

== ENCOUNTER 2018-03-07 08:31 | Day surgery (SDC) | payer MEDICARE ==
[2018-03-07] MEDS ORDERED: hydrALAZINE HCL 20 MG/ML 1 ML VIAL ONE (08:53)
[2018-03-07 09:11] LABS: Basophils % (A) 0 %; Eosinophils # (A) 0.3 k/uL (0-0.7); Eosinophils % (A) 3 %; HCT 34.2 % (39.0-53.0); HGB 11.5 gm/dL (13.0-17.5); Lymphocytes # (A) 1.4 k/uL (1.0-4.8); Lymphocytes % (A) 16 %; MCH 33.2 pg (25.0-35.0); MCHC 33.7 g/dL (31.0-37.0); MCV 98.5 fL (80.0-100.0); Monocytes # (A) 0.5 k/uL (0-1.0); Monocytes % (A) 6 %; Neutrophils # (A) 6.4 k/uL (1.3-7.7); Neutrophils % (A) 73 %; Platelet Count 205 k/uL (150-450); RBC 3.47 m/uL (4.30-5.90); RDW 12.8 % (11.5-15.5); WBC 8.8 k/uL (3.8-10.6)
[2018-03-07 09:29] LABS: Anion Gap 11 mmol/L; Blood Urea Nitrogen 8 mg/dL (9-20); Calcium 8.6 mg/dL (8.4-10.2); Carbon Dioxide 26 mmol/L (22-30); Chloride 97 mmol/L (98-107); Glucose 79 mg/dL (74-99); Potassium 4.2 mmol/L (3.5-5.1); Sodium 134 mmol/L (137-145)
[2018-03-07] MEDS: MIDAZOLAM 2 MG/2 ML VIAL IVP ONE ×4 (11:02→13:07)
[2018-03-07] MEDS: fentaNYL (PF) 50 MCG/ML 2 ML AMP IVP ONE ×4 (11:02→13:29)
[2018-03-07] MEDS ORDERED: LIDOCAINE 2% INJ 20 MG/ML SQ ONE (11:07)
[2018-03-07] MEDS: MORPHINE SULFATE 4 MG/ML SYRINGE IVP ONE ×2 (12:17→12:46)
[2018-03-07] MEDS ORDERED: IOPAMIDOL-300 100ML BTL INJ ONE (12:34)
[2018-03-07] MEDS ORDERED: IOPAMIDOL-300 50ML BTL INJ ONE (12:34)
[2018-03-07] MEDS ORDERED: IOPAMIDOL-250 50ML BTL INTRAARTER ONE (12:35)
[2018-03-07] MEDS ORDERED: HEPARIN SODIUM 1,000 UN/ML (10ML VL) IV ONE (13:44)
[2018-03-07] MEDS ORDERED: niCARdipine Syringe (1,000 mcg/10 mL) INTRAARTER ONE (13:58)
[2018-03-07] MEDS ORDERED: NITROGLYCERIN 1000MCG/10ML SYRINGE INTRAARTER ONE (13:58)
[2018-03-07] MEDS ORDERED: CLOPIDOGREL 75 MG TAB PO ONE (14:06)
[2018-03-07] MEDS ORDERED: SODIUM CHLORIDE 0.9% 1,000 ML IV SCH (14:30)
[2018-03-07 15:16] VITALS: BMI 25.3
[2018-03-07] MEDS ORDERED: ACETAMINOPHEN TAB 500 MG TAB PO PRN (16:00)
[2018-03-07] MEDS ORDERED: NICOTINE 21MG/24HR PATCH TRANSDERM SCH (16:00)
[2018-03-07] MEDS ORDERED: ATROPINE SULFATE 0.1 MG/ML 10ML SYRINGE ONE (17:28)
--- NOTE | 2018-03-07 17:52 | LTR ---
March 07, [address] Harrell: Mr. Froy Gee underwent today another procedure of the left lower extremities. He underwent successful stenting of the left iliac and successful balloon angioplasty of the left popliteal with good angiographic results and without any complication. I want to thank you for allowing me to participate in his care and please do not hesitate to call if you have any question or concern. MMODL / IJN: [id number] /
[2018-03-07 18:21] VITALS: RESP 18
--- NOTE | 2018-03-07 18:43 | AN ---
ANGIOGRAPHY REPORT DATE OF SERVICE: March 07, 2019 PERFORMING PHYSICIAN: Trevin Esqueda MD, supervisor game farm. PROCEDURE PERFORMED: 1. Selective left common iliac artery angiogram. 2. Selective left common femoral artery angiogram. 3. Selective left SFA angiogram. 4. Selective left popliteal angiogram. 5. Selective left pvvly-whq-vxul angiogram. 6. Successful stenting of the left common iliac artery using a 9 x 29 mm balloon expandable stent Omnilink with good angiographic results. 7. Successful balloon angioplasty of the left popliteal artery using 4.0 x 40 mm drug coated balloon impact with good angiographic results. INDICATION: Mr. Froy Gee continues to have critical limb ischemia of bilateral lower extremities and he underwent a peripheral angiogram recently and that showed severe left common iliac disease and occluded left popliteal. APPROACH: Right common femoral artery. COMPLICATION: None LEVEL OF SEDATION: Moderate with sedation length of 185 minutes. PROCEDURE: After obtaining an informed consent, the patient was brought to the cardiac laborer filter plant. The right common femoral artery was cannulated using micropuncture technique and a micropuncture wire passed easily, then I placed a 6-Korean sheath 11 cm in the right common femoral artery. After that I did select the left SFA using a 5-Korean rim catheter with 035 advantage wire. I did exchange my 11 cm sheath into 55 cm 6-Korean sheath using a 035 advantage wire. Subsequently I did selective left common iliac artery angiogram before I did balloon angioplasty using initially 8 mm balloon and subsequently I deployed 9 x 29 mm balloon expandable stent, which was only length where the stent was positioned under fluoroscopy guidance and deployed under its nominal pressure. The following angiogram showed good angiographic results. Of course before the procedure, anticoagulation was initiated using heparin and the patient was given 10,000 units of heparin IV. A continuous ACT monitoring was performed throughout the procedure. Subsequently I did selective left common femoral artery angiogram, selective left SFA angiogram, left popliteal angiogram and left [id number] angiogram. Selective left leg angiogram revealed mild to moderate diffuse disease with heavily calcified femoral and SFA. I found that the left popliteal was occluded. Below the knee there is only 1 vessel runoff with AT. I did after that do cross the FLOSSER of the left popliteal artery using an 014 hydro XT wire and I did balloon angioplasty using a coronary balloon which was 4 0 because I had difficulty advancing a peripheral balloon. After that, I was able to advance 4 0 x 40 mm impacted drug coated balloon where the balloon was positioned under fluoroscopy guidance and inflated under its nominal pressure. The following angiogram showed good angiographic result. The procedure was completed without any complication. POSTPROCEDURE MANAGEMENT: 1. Dual anti-platelet therapy. 2. Risk factor modifications. 3. Follow up with the patient. MANJU / SOCO: [id number] /
[2018-03-07 19:22] VITALS: PULSE 73; TEMP 98.9
[2018-03-07 20:29] VITALS: BP 155/67
[2018-03-08] MEDS ORDERED: LISINOPRIL 5 MG TAB PO SCH (09:00)
[2018-03-08] MEDS ORDERED: METOPROLOL TARTRATE 50 MG TAB PO SCH (09:00)
[2018-03-08] MEDS ORDERED: NON-FORMULARY DRUG (Garlic [Garlic] 1 TAB) PO SCH (09:00)
[2018-03-08] MEDS ORDERED: FUROSEMIDE 20 MG TAB PO SCH (09:00)
[2018-03-08] MEDS ORDERED: MILK THISTLE PO SCH (09:00)
[2018-03-08] MEDS ORDERED: ASPIRIN 325 MG TAB PO SCH (09:00)
[2018-03-08] MEDS ORDERED: CLOPIDOGREL 75 MG TAB PO SCH (09:00)
[2018-03-08] MEDS ORDERED: MULTIVITAMINS, THERA 1 EACH TAB PO SCH (12:00)
--- NOTE | 2018-03-09 10:39 | IR ---
EXAMINATION TYPE: IR stent intravas non coronary DATE OF EXAM: 03/07/2018 COMPARISON: NONE HISTORY: Peripheral vascular occlusive disease. Fluoroscopy was provided to the referring clinician. See dictated report from cardiology.
== END 2018-03-07 22:02 | disposition home or self-care (01) ==
LOC: CATHCVL 08:31 → 6SEL 14:09 → CATHCVL 22:02
PROVIDERS: ATTEND Internal Medicine Interventional Cardiology
DX: I70.213 Atherosclerosis of native arteries of extremities with intermittent claudication, bilateral legs (principal); I25.10 Atherosclerotic heart disease of native coronary artery without angina pectoris; I10 Essential (primary) hypertension; I99.8 Other disorder of circulatory system; I35.1 Nonrheumatic aortic (valve) insufficiency; F17.210 Nicotine dependence, cigarettes, uncomplicated; Z79.02 Long term (current) use of antithrombotics/antiplatelets; Z79.82 Long term (current) use of aspirin; Z79.899 Other long term (current) drug therapy
CPT/HCPCS: 37221; 37224; 85347; 80048; 85025; C1894 ×2; C1725 ×3; C1769 ×6; C1876; C2623; S4990; J2001; J2250; J2270; J0360; J3010; J1644 ×2; Q9966; Q9967; 36246; 36247

== ENCOUNTER → 2019-05-22 | Outpatient (CLI) | payer MEDICARE ==
[2019-05-22 16:46] LABS: Anisocytosis Slight; Basophils % (A) 0 %; Eosinophils # (A) 0.2 k/uL (0-0.7); Eosinophils % (A) 2 %; HCT 38.2 % (39.0-53.0); HGB 12.4 gm/dL (13.0-17.5); Lymphocytes # (A) 1.2 k/uL (1.0-4.8); Lymphocytes % (A) 17 %; MCH 30.4 pg (25.0-35.0); MCHC 32.5 g/dL (31.0-37.0); MCV 93.6 fL (80.0-100.0); Mean Platelet Volume 7.2; Monocytes # (A) 0.7 k/uL (0-1.0); Monocytes % (A) 10 %; Neutrophils # (A) 4.8 k/uL (1.3-7.7); Neutrophils % (A) 67 %; Platelet Count 159 k/uL (150-450); RBC 4.08 m/uL (4.30-5.90); RDW 16.8 % (11.5-15.5); WBC 7.2 k/uL (3.8-10.6)
[2019-05-22 16:47] LABS: African American GFR (CKD) >90 (>60 ml/min/1.73 sqM); Anion Gap 7 mmol/L; Blood Urea Nitrogen 10 mg/dL (9-20); Carbon Dioxide 29 mmol/L (22-30); Chloride 98 mmol/L (98-107); Glucose 87 mg/dL (74-99); Potassium 4.2 mmol/L (3.5-5.1); Sodium 134 mmol/L (137-145)
[2019-05-22 16:48] LABS: ALT 19 U/L (21-72); AST 39 U/L (17-59); Albumin 3.9 g/dL (3.5-5.0); Alkaline Phosphatase 67 U/L (38-126); Calcium 8.6 mg/dL (8.4-10.2); Total Bilirubin 0.3 mg/dL (0.2-1.3); Total Protein 7.1 g/dL (6.3-8.2)
[2019-05-23 01:12] LABS: Hemoglobin A1C 5.3 % (4.0-6.0)
--- NOTE | 2019-05-29 14:49 | P.ARTDOP ---
Arterial Doppler LOWER EXTREMITY ARTERIAL DOPPLER: DATE OF SERVICE: 05/22/2019 Reason for study: Left heel ulcer. Doppler waveforms: Multiphasic at both femorals and the left dorsalis pedis. Atypical right posterior tibial and dorsalis pedis and left popliteal. Pulse volume recording: Blunted at the ankles. Pressure gradients: Bilaterally. Ankle-brachial indices: 0.38 on the right and 0.39 on the left. Toe pressures: [] on the right, [] on the left Impression: Severe bilateral femoral popliteal occlusive disease.
== END | disposition home or self-care (01) ==
LOC: RADUSWWP 14:23
PROVIDERS: ATTEND Thoracic Surgery (Cardiothoracic Vascular Surgery)
DX: I70.244 Atherosclerosis of native arteries of left leg with ulceration of heel and midfoot (principal); F17.210 Nicotine dependence, cigarettes, uncomplicated
CPT/HCPCS: 36415; 80053; 83036; 84134; 85025; 93922

== ENCOUNTER 2019-09-30 10:40 | Day surgery (SDC) | payer MEDICARE ==
[2019-09-25 08:41] VITALS: BMI 24.4
[~2019-09-30 10:40] MED LIST changes: +ASPIRIN 325 MG TAB PO ONE; -ASPIRIN 325 MG TAB PO STA; +ZOLPIDEM 5 MG TAB PO PRN
[2019-09-30 11:02] VITALS: TEMP 97.9
[2019-09-30] MEDS ORDERED: MIDAZOLAM 2 MG/2 ML VIAL IVP ONE (12:30)
[2019-09-30] MEDS ORDERED: LIDOCAINE 1% INJ 10MG/ML (20 ML MDV) SQ ONE (12:36)
[2019-09-30] MEDS ORDERED: IOPAMIDOL-300 100ML BTL INJ ONE (12:47)
[2019-09-30] MEDS ORDERED: IOPAMIDOL-370 100ML BTL INJ ONE (12:49)
[2019-09-30] MEDS ORDERED: SODIUM CHLORIDE 0.9% 1,000 ML IV SCH (13:00)
[2019-09-30] MEDS ORDERED: NICOTINE 21MG/24HR PATCH TRANSDERM STA (13:09)
[2019-09-30] MEDS ORDERED: hydrALAZINE HCL 20 MG/ML 1 ML VIAL ONE (13:21)
--- NOTE | 2019-09-30 13:33 | IR ---
EXAMINATION TYPE: IR angio abdominal w runoff DATE OF EXAM: 09/30/2019 COMPARISON: NONE HISTORY: Fluoroscopy time. Fluoroscopy was provided to the referring clinician.
--- NOTE | 2019-09-30 14:02 | AN ---
ANGIOGRAPHY REPORT ABDOMINAL AORTOGRAM AND BILATERAL LOWER EXTREMITIES RUNOFF: DATE OF SERVICE: 09/30/2019 PERFORMING PHYSICIAN: Trevin Esqueda MD. PROCEDURES PERFORMED: 1. An abdominal aortogram. 2. Bilateral lower extremities runoff. INDICATION: This is a very pleasant 64-year-old gentleman with history of peripheral arterial disease and prior revascularization multiple times in the past, who unfortunately continues to smoke. Developed evidence of critical limb ischemia involving the left foot. Because of that, he underwent an arterial duplex study which showed severe femoral-popliteal disease bilaterally. Because of that, an aortogram with runoff was advised. APPROACH: Right common femoral artery. COMPLICATION: None. LEVEL OF SEDATION: Moderate with sedation length of 15 minutes. PROCEDURE DESCRIPTION: After obtaining an informed consent, the patient was brought to the cardiac paint laboratory technician. The right common femoral artery was cannulated using micropuncture technique, the micropuncture wire passed easily, then I placed a 5-Serbian sheath. After that, I did an abdominal aortogram and bilateral lower extremity runoff using pigtail catheter which was initially placed at the level of the renal arteries then it was pulled into above the bifurcation of the aorta. The procedure was completed without any complication. SELECTIVE PERIPHERAL ANGIOGRAM: 1. The aorta is calcified with mild disease only. 2. COMMON ILIAC ARTERIES: the right common iliac artery appeared to have mild disease only and the left common iliac artery appeared to be angiographically normal. 3. EXTERNAL ILIAC ARTERIES: the right external iliac artery appeared to have mild to moderate disease and the left external iliac artery appeared to have critical disease in the range of 99.9%. 4. COMMON FEMORAL ARTERIES: Both are patent. 5. INTERNAL ILIAC ARTERIES: Both are occluded. 6. PROFUNDA: Both are patent. 7. SFA: The right SFA is occluded in the proximal portion and reconstitutes in the midportion. The left SFA is diffusely diseased up to about 100% occlusion in the midportion. 8. POPLITEAL: The right popliteal and left popliteal appeared to have mild disease only. 9. BELOW THE KNEE: Arteries below the knee were not well visualized, but for the left side there is what seems to be anterior tibial artery and the same thing on the right side as well. CONCLUSION: 1. Severe aortoiliac disease with critical left external iliac artery. 2. Severe femoral-popliteal disease with occluded bilateral SFA. POSTPROCEDURE MANAGEMENT: The patient will be scheduled to undergo a TEMPORARY DATA ENTRY CLERK of the left iliac as well as left SFA and at that point, I would assess the patency of the arteries below the knee. MMODL / IJN: [id number] /
[2019-09-30 14:20] VITALS: RESP 16
[2019-09-30 16:45] VITALS: BP 152/65; PULSE 82
== END 2019-09-30 17:20 | disposition home or self-care (01) ==
LOC: CATHCVL 10:40
PROVIDERS: ATTEND Internal Medicine Interventional Cardiology
DX: I70.213 Atherosclerosis of native arteries of extremities with intermittent claudication, bilateral legs (principal); I10 Essential (primary) hypertension; I25.10 Atherosclerotic heart disease of native coronary artery without angina pectoris; I35.2 Nonrheumatic aortic (valve) stenosis with insufficiency; E78.5 Hyperlipidemia, unspecified; Z79.02 Long term (current) use of antithrombotics/antiplatelets; Z79.82 Long term (current) use of aspirin; Z79.899 Other long term (current) drug therapy; F17.210 Nicotine dependence, cigarettes, uncomplicated
CPT/HCPCS: 36200; 75625; 75716; C1894; C1769 ×3; S4990; J2250; J0360; J2001; Q9967 ×2

== ENCOUNTER 2019-11-20 14:42 | Emergency (ER) | payer MEDICARE ==
[2019-11-20] MEDS ORDERED: HEPARIN SODIUM,PORCINE 5,000 UNIT/ML 1 ML VIAL IV PRN (15:00)
[2019-11-20] MEDS ORDERED: HEPARIN SODIUM,PORCINE 10,000 UNIT/ML 1 ML VIAL IV ONE (15:00)
[2019-11-20] MEDS ORDERED: SODIUM CHLORIDE 0.9% 1,000 ML IV ONE ×4 (15:01→16:00)
[2019-11-20 15:04] VITALS: PULSE 34; RESP 23
--- NOTE | 2019-11-20 15:10 | XR ---
EXAMINATION TYPE: XR chest 1V portable DATE OF EXAM: 11/20/2019 COMPARISON: NONE HISTORY: Shortness of breath TECHNIQUE: Single frontal view of the chest is obtained. FINDINGS: Bilateral lower lobe subsegmental consolidation. Pleural-based thickening and chronic rib deformities are noted. Arthropathy of the shoulders with diffuse osteopenia. Heart is enlarged and th ere is atherosclerotic change of the aorta. IMPRESSION: 1. Cardiomegaly with basilar atelectasis or early infiltrate correlate clinically. 2. Bilateral pleural-based thickening greater within the left lower lobe. Standard PA and lateral vie ws of the chest could be obtained on a short-term basis.
[2019-11-20] MEDS ORDERED: NALOXONE 0.4 MG/ML 1 ML VIAL IV PRN (15:15)
[2019-11-20] MEDS ORDERED: VANCOMYCIN IV PER PHARMACY 1 EACH MISC MISCELLANE PRN (15:18)
[2019-11-20] MEDS ORDERED: CEFEPIME 2 GM in SODIUM CHLORIDE 0.9% 100 ML IVPB STA (15:20)
[2019-11-20] MEDS ORDERED: CALCIUM GLUCONATE 1 GM in SODIUM CHLORIDE 0.9% 100 ML IVPB ONE (15:23)
[2019-11-20] MEDS ORDERED: EPINEPHrine 10 ML SYRINGE (0.1 MG/ML) ONE (15:30)
[2019-11-20] MEDS ORDERED: HEPARIN SOD,PORK IN 0.45% NACL 25,000 UNIT in 0.45% NACL 1 250ML.BAG IV SCH (15:30)
[2019-11-20 15:32] LABS: Basophils # (A) 0.2 k/uL (0-0.2); Basophils % (A) 1 %; Eosinophils # (A) 0.1 k/uL (0-0.7); Eosinophils % (A) 1 %; HCT 37.2 % (39.0-53.0); HGB 11.2 gm/dL (13.0-17.5); Hypochromasia Marked; Lymphocytes % (A) 11 %; MCH 32.3 pg (25.0-35.0); Macrocytosis Marked; Mean Platelet Volume 8.5; Monocytes # (A) 0.7 k/uL (0-1.0); Monocytes % (A) 4 %; Neutrophils # (A) 15.6 k/uL (1.3-7.7); Neutrophils % (A) 82 %; Platelet Count 233 k/uL (150-450); RBC 3.45 m/uL (4.30-5.90); RDW 14.2 % (11.5-15.5); WBC 18.9 k/uL (3.8-10.6)
[2019-11-20] MEDS ORDERED: ATROPINE SULFATE 0.1 MG/ML 10ML SYRINGE IV STA ×2 (15:32→15:49)
[2019-11-20] MEDS ORDERED: MIDAZOLAM 1 MG/ML 5 ML VIAL IV STA (15:32)
[2019-11-20] MEDS ORDERED: ROCURONIUM BROMIDE 10 MG/ML 10 ML VIAL IV STA (15:33)
[2019-11-20 15:40] LABS: INR 1.3 (<1.2); MCV 107.8 fL (80.0-100.0); Prothrombin Time 12.8 sec (9.0-12.0)
[2019-11-20 15:44] LABS: Albumin 3.2 g/dL (3.5-5.0); Magnesium 3.3 mg/dL (1.6-2.3); Potassium 5.7 mmol/L (3.5-5.1); Total Bilirubin 0.7 mg/dL (0.2-1.3); Total Protein 6.7 g/dL (6.3-8.2)
[2019-11-20] MEDS ORDERED: VANCOMYCIN 1,750 MG in SODIUM CHLORIDE 0.9% 500 ML 500 ML IVPB ONE (15:45)
[2019-11-20 16:00] LABS: Poikilocytosis (M) Present
[2019-11-20] MEDS ORDERED: DEXTROSE 5% IN WATER 1,000 ML with SODIUM BICARB (1 MEQ/ML) 150 ML IV SCH (16:00)
[2019-11-20] MEDS ORDERED: EPINEPHrine 4 MG in DEXTROSE 5% IN WATER 250 ML IV ONE ×2 (16:15)
--- NOTE | 2019-11-20 16:22 | XR ---
EXAMINATION TYPE: XR chest 1V portable DATE OF EXAM: 11/20/2019 COMPARISON: Prior chest x-ray 11/20/2019 HISTORY: Status post intubation, central venous catheter placement TECHNIQUE: Single frontal view of the chest is obtained. FINDINGS: There is been interval placement of an endotracheal tube and NG tube which are overlying a ppropriate positions. Right jugular central venous catheter has been place, distal tip is overlying t he cavoatrial junction level. There is no evident pneumothorax or pleural effusion. The heart is enla rged. There are overlying cardiac leads. Probable subsegmental basilar atelectatic changes are presen t. IMPRESSION: No evident complication status post intubation and central venous catheter placement. Ca rdiomegaly. Probable basilar subsegmental atelectatic change.
[2019-11-20] MEDS ORDERED: MORPHINE SULFATE 4 MG/ML SYRINGE IVP PRN (16:24)
--- NOTE | 2019-11-20 16:30 | P.GSCN ---
<Get Khan - Last Filed: 11/20/19 16:41> History of Present Illness Reason for Consult: Critical left limb ischemia History of present illness: Family patient has had increasing mottling of his left lower extremity over the last 2 days which started around his knee and today extended up to his hip and thigh. Upon evaluation in the emergency department patient is intubated and receiving bicarb via drip. Per the emergency department physician his heart rate dipped to below 30 and blood pressure was in the 70s and required multiple boluses which has improved his blood pressure slightly. He did have a previous bilateral common femoral artery endarterectomy and patch angioplasty as well as a recent aortogram with runoff with Dr. Esqueda which demonstrated severe stenosis of his external iliac artery as well as occlusion of his superficial femoral artery on the left. He was scheduled for intervention in the next coming week. Medications and Allergies Home Medications Medication Instructions Recorded Confirmed Type Metoprolol Tartrate [Lopressor] 25 mg PO QAM 10/14/14 09/30/19 History Garlic 1 tab PO QAM 03/02/15 09/25/19 History Milk Thistle (500 Mg 1 tab PO QAM 03/02/15 09/25/19 History Multivitamin [Men's Multi-Vitamin] 1 tab PO QAM 03/02/15 09/25/19 History Acetaminophen Tab [Tylenol] 1,000 mg PO Q4HR 10/11/17 09/30/19 History Furosemide [Lasix] 20 mg PO DAILY 12/20/17 09/30/19 History Atorvastatin [Lipitor] 20 mg PO DAILY 05/30/18 09/30/19 History Amitriptyline HCl 50 mg PO DAILY 09/25/19 09/30/19 History Aspirin [Adult Low Dose Aspirin EC] 81 mg PO DAILY 09/25/19 09/30/19 History Pregabalin [Lyrica] 200 mg PO TID #90 capsule 11/12/19 Rx Allergies Allergy/AdvReac Type Severity Reaction Status Date / Time No Known Allergies Allergy Verified 09/25/19 08:30 Surgical - Exam Vital Signs Pulse Resp BP Pulse Ox 34 L 23 103/69 90 L 11/20/19 15:00 11/20/19 15:00 11/20/19 15:00 11/20/19 15:00 Results - Labs 11/20/19 15:01 11/20/19 15:01 Abnormal Lab Results - Last 24 Hours (Table) 11/20/19 11/20/19 11/20/19 Range/Units 15:01 15:01 15:01 WBC 18.9 H (3.8-10.6) k/uL RBC 3.45 L (4.30-5.90) m/uL Hgb 11.2 L (13.0-17.5) gm/dL Hct 37.2 L (39.0-53.0) % MCV 107.8 H D (80.0-100.0) fL MCHC 30.0 L (31.0-37.0) g/dL Neutrophils # 15.6 H (1.3-7.7) k/uL Macrocytosis Marked A PT (9.0-12.0) sec INR (<1.2) APTT (22.0-30.0) sec Sodium 118 L* (137-145) mmol/L Potassium 5.7 H (3.5-5.1) mmol/L Chloride 84 L (98-107) mmol/L Carbon Dioxide 6 L* (22-30) mmol/L Creatinine 2.73 H (0.66-1.25) mg/dL Plasma Lactic Acid Bandar 15.1 H* (0.7-2.0) mmol/L Calcium 8.0 L (8.4-10.2) mg/dL Magnesium 3.3 H (1.6-2.3) mg/dL AST 355 H (17-59) U/L ALT 88 H (4-49) U/L Troponin I (0.000-0.034) ng/mL Albumin 3.2 L (3.5-5.0) g/dL 11/20/19 11/20/19 Range/Units 15:01 15:01 WBC (3.8-10.6) k/uL RBC (4.30-5.90) m/uL Hgb (13.0-17.5) gm/dL Hct (39.0-53.0) % MCV (80.0-100.0) fL MCHC (31.0-37.0) g/dL Neutrophils # (1.3-7.7) k/uL Macrocytosis PT 12.8 H (9.0-12.0) sec INR 1.3 H (<1.2) APTT 41.0 H (22.0-30.0) sec Sodium (137-145) mmol/L Potassium (3.5-5.1) mmol/L Chloride (98-107) mmol/L Carbon Dioxide (22-30) mmol/L Creatinine (0.66-1.25) mg/dL Plasma Lactic Acid Bandar (0.7-2.0) mmol/L Calcium (8.4-10.2) mg/dL Magnesium (1.6-2.3) mg/dL AST (17-59) U/L ALT (4-49) U/L Troponin I 5.780 H* (0.000-0.034) ng/mL Albumin (3.5-5.0) g/dL Diabetes panel 11/20/19 Range/Units 15:01 Sodium 118 L* (137-145) mmol/L Potassium 5.7 H (3.5-5.1) mmol/L Chloride 84 L (98-107) mmol/L Carbon Dioxide 6 L* (22-30) mmol/L BUN 19 (9-20) mg/dL Creatinine 2.73 H (0.66-1.25) mg/dL Glucose 81 (74-99) mg/dL Calcium 8.0 L (8.4-10.2) mg/dL AST 355 H (17-59) U/L ALT 88 H (4-49) U/L Alkaline Phosphatase 90 (38-126) U/L Total Protein 6.7 (6.3-8.2) g/dL Albumin 3.2 L (3.5-5.0) g/dL Thyroid panel 11/20/19 Range/Units 15:01 TSH 3.190 (0.465-4.680) mIU/L Calcium panel 11/20/19 Range/Units 15:01 Calcium 8.0 L (8.4-10.2) mg/dL Albumin 3.2 L (3.5-5.0) g/dL Pituitary panel 11/20/19 Range/Units 15:01 Sodium 118 L* (137-145) mmol/L Potassium 5.7 H (3.5-5.1) mmol/L Chloride 84 L (98-107) mmol/L Carbon Dioxide 6 L* (22-30) mmol/L BUN 19 (9-20) mg/dL Creatinine 2.73 H (0.66-1.25) mg/dL Glucose 81 (74-99) mg/dL Calcium 8.0 L (8.4-10.2) mg/dL TSH 3.190 (0.465-4.680) mIU/L Adrenal panel 11/20/19 Range/Units 15:01 Sodium 118 L* (137-145) mmol/L Potassium 5.7 H (3.5-5.1) mmol/L Chloride 84 L (98-107) mmol/L Carbon Dioxide 6 L* (22-30) mmol/L BUN 19 (9-20) mg/dL Creatinine 2.73 H (0.66-1.25) mg/dL Glucose 81 (74-99) mg/dL Calcium 8.0 L (8.4-10.2) mg/dL Total Bilirubin 0.7 (0.2-1.3) mg/dL AST 355 H (17-59) U/L ALT 88 H (4-49) U/L Alkaline Phosphatase 90 (38-126) U/L Total Protein 6.7 (6.3-8.2) g/dL Albumin 3.2 L (3.5-5.0) g/dL Assessment and Plan Assessment: Severe metabolic acidosis Elevated troponin secondary to left lower extremity ischemia Acute renal failure Plan: Long discussion was had with the patient's family who is in the emergency department. Patient is extremely high risk for any surgical intervention and will not survive any type of intervention at this time. We did discuss possible medical management and attempt at reversing his acute renal failure, acidosis in the ICU but the patient has low percent survivability. Family decided to make patient comfortable and withdraw any further care. <Kristin Mitchell - Last Filed: 11/21/19 07:53> History of Present Illness Consult date: 11/20/19 History of present illness: Patient is a 64-year-old male who came in by EMS for a left cold leg. The patient has been managed with Dr. Garcia for bilateral lower extremity wounds. He has a history of a pretension, hyperlipidemia, peripheral arterial disease, 2 pack-a-day smoker for approximately 50 years. He is status post right superficial femoral angioplasty. Patient has had a prior right third and fourth toe amputation. Upon arrival to the emergency department to evaluate patient, patient is intubated, hypotensive. Patient history obtained from , she states the patient's leg has become progressively worse with mottling and has been cold to the touch for the last 2 days. The patient was seen today by wound care nurse at home, who had told the to take the patient to the emergency room thus EMS was called. Review of Systems uable to obtain due to intubation and sedation Past Medical History Past Medical History: Hypertension, Vascular Disorder Additional Past Medical History / Comment(s): PVD, Wounds carmen feet History of Any Multi-Drug Resistant Organisms: None Reported Past Surgical History: Heart Catheterization, Hernia Repair Additional Past Surgical History / Comment(s): Wound center pt. Right axillary c yst removed, arteriogram, fissure corrected between bladder and colon. FEM POP BYPASS, 3 STENTS, AMPUTATION 4TH AND 5TH TOES RIGHT FOOT 12/08/17, recent debridement in & December 2017. Past Anesthesia/Blood Transfusion Reactions: No Reported Reaction Past Psychological History: No Psychological Hx Reported Smoking Status: Current every day smoker - Past Family History Father Family Medical History: Myocardial Infarction (NH) Additional Family Medical History / Comment(s): . Mother Family Medical History: Cancer Brother(s) Family Medical History: Cancer Additional Family Medical History / Comment(s): PANCREATIC CANCER Surgical - Exam Vital Signs Pulse Resp BP Pulse Ox 34 L 23 103/69 90 L 11/20/19 15:00 11/20/19 15:00 11/20/19 15:00 11/20/19 15:00 General appearance: intubated and sedated HET: Head is normocephalic and atraumatic. Neck: Supple without lymphadenopathy. Trachea midline. Extremities: Left lower extremity mottled and cold up to left lower abdomen. No palpable femoral, popliteal, PT, or DP pulses. No palpable radial pulses. Left foot with dressing. Results - Labs 11/20/19 15:01 11/20/19 15:01 Abnormal Lab Results - Last 24 Hours (Table) 11/20/19 11/20/19 11/20/19 Range/Units 15:01 15: 15:01 WBC 18.9 H (3.8-10.6) k/uL RBC 3.45 L (4.30-5.90) m/uL Hgb 11.2 L (13.0-17.5) gm/dL Hct 37.2 L (39.0-53.0) % MCV 107.8 H D (80.0-100.0) fL MCHC 30.0 L (31.0-37.0) g/dL Macrocytosis Marked A PT 12.8 H (9.0-12.0) sec INR 1.3 H (<1.2) APTT 41.0 H (22.0-30.0) sec Sodium 118 L* (137-145) mmol/L Potassium 5.7 H (3.5-5.1) mmol/L Chloride 84 L (98-107) mmol/L Carbon Dioxide 6 L* (22-30) mmol/L Creatinine 2.73 H (0.66-1.25) mg/dL Calcium 8.0 L (8.4-10.2) mg/dL Magnesium 3.3 H (1.6-2.3) mg/dL AST 355 H (17-59) U/L Albumin 3.2 L (3.5-5.0) g/dL Diabetes panel 11/20/19 Range/Units 15:01 Sodium 118 L* (137-145) mmol/L Potassium 5.7 H (3.5-5.1) mmol/L Chloride 84 L (98-107) mmol/L Carbon Dioxide 6 L* (22-30) mmol/L BUN 19 (9-20) mg/dL Creatinine 2.73 H (0.66-1.25) mg/dL Glucose 81 (74-99) mg/dL Calcium 8.0 L (8.4-10.2) mg/dL AST 355 H (17-59) U/L Alkaline Phosphatase 90 (38-126) U/L Total Protein 6.7 (6.3-8.2) g/dL Albumin 3.2 L (3.5-5.0) g/dL Calcium panel 11/20/19 Range/Units 15:01 Calcium 8.0 L (8.4-10.2) mg/dL Albumin 3.2 L (3.5-5.0) g/dL Pituitary panel 11/20/19 Range/Units 15:01 Sodium 118 L* (137-145) mmol/L Potassium 5.7 H (3.5-5.1) mmol/L Chloride 84 L (98-107) mmol/L Carbon Dioxide 6 L* (22-30) mmol/L BUN 19 (9-20) mg/dL Creatinine 2.73 H (0.66-1.25) mg/dL Glucose 81 (74-99) mg/dL Calcium 8.0 L (8.4-10.2) mg/dL Adrenal panel 11/20/19 Range/Units 15:01 Sodium 118 L* (137-145) mmol/L Potassium 5.7 H (3.5-5.1) mmol/L Chloride 84 L (98-107) mmol/L Carbon Dioxide 6 L* (22-30) mmol/L BUN 19 (9-20) mg/dL Creatinine 2.73 H (0.66-1.25) mg/dL Glucose 81 (74-99) mg/dL Calcium 8.0 L (8.4-10.2) mg/dL Total Bilirubin 0.7 (0.2-1.3) mg/dL AST 355 H (17-59) U/L Alkaline Phosphatase 90 (38-126) U/L Total Protein 6.7 (6.3-8.2) g/dL Albumin 3.2 L (3.5-5.0) g/dL Assessment and Plan Assessment: Critical limb ischemic left lower extremity Peripheral arterial disease Hyperlipidemia Hypertension Tobacco abuse Plan: The above dictated assessment and findings were discussed with Dr. Khan. The impression and plan of care have been directed as dictated.
[2019-11-20] MEDS ORDERED: MORPHINE SULFATE 4 MG/ML SYRINGE IVP STA (16:35)
[2019-11-20 16:44] VITALS: BP 100/34
--- NOTE | 2019-11-20 17:12 | ED ---
General Adult HPI - General Chief complaint: Extremity Injury, Lower Stated complaint: wound care Time Seen by Provider: 11/20/19 14:44 Source: patient, EMS, RN notes reviewed, old records reviewed Mode of arrival: EMS Limitations: no limitations - History of Present Illness Initial comments: 64-year-old male presents with chief complaint of evaluation of chronic left leg wound. Transported by EMS at the request of the home care nurse. Patient tachy pneic, somewhat confused, able to answer simple questions. Denying pain complaints. History of peripheral vascular disease and chronic wound in the left leg. EMS was unable to obtain vital signs during transport. Unable to obtain IV access during transport as well. - Related Data Home Medications Medication Instructions Recorded Confirmed Metoprolol Tartrate [Lopressor] 25 mg PO QAM 10/14/14 09/30/19 Garlic 1 tab PO QAM 03/02/15 09/25/19 Milk Thistle (500 Mg 1 tab PO QAM 03/02/15 09/25/19 Multivitamin [Men's Multi-Vitamin] 1 tab PO QAM 03/02/15 09/25/19 Acetaminophen Tab [Tylenol] 1,000 mg PO Q4HR 10/11/17 09/30/19 Furosemide [Lasix] 20 mg PO DAILY 12/20/17 09/30/19 Atorvastatin [Lipitor] 20 mg PO DAILY 05/30/18 09/30/19 Amitriptyline HCl 50 mg PO DAILY 09/25/19 09/30/19 Aspirin [Adult Low Dose Aspirin EC] 81 mg PO DAILY 09/25/19 09/30/19 Previous Rx's Medication Instructions Recorded Pregabalin [Lyrica] 200 mg PO TID #90 capsule 11/12/19 Allergies Allergy/AdvReac Type Severity Reaction Status Date / Time No Known Allergies Allergy Verified 09/25/19 08:30 Review of Systems ROS Statement: Those systems with pertinent positive or pertinent negative responses have been documented in the HPI. ROS Other: All systems not noted in ROS Statement are negative. Past Medical History Past Medical History: Hypertension, Vascular Disorder Additional Past Medical History / Comment(s): PVD, Wounds carmen feet History of Any Multi-Drug Resistant Organisms: None Reported Past Surgical History: Heart Catheterization, Hernia Repair Additional Past Surgical History / Comment(s): Wound center pt. Right axillary cyst removed, arteriogram, fissure corrected between bladder and colon. FEM POP BYPASS, 3 STENTS, AMPUTATION 4TH AND 5TH TOES RIGHT FOOT 12/08/17, recent debridement in & December 2017. Past Anesthesia/Blood Transfusion Reactions: No Reported Reaction Past Psychological History: No Psychological Hx Reported Smoking Status: Current every day smoker - Past Family History Father Family Medical History: Myocardial Infarction ([place]) Additional Family Medical History / Comment(s): . Mother Family Medical History: Cancer Brother(s) Family Medical History: Cancer Additional Family Medical History / Comment(s): PANCREATIC CANCER General Exam Limitations: no limitations General appearance: lethargic, in distress Head exam: Present: atraumatic, normocephalic Eye exam: Absent: PERRL (Right pupil 4 mm, left pupil 6 mm, bilateral proptosis, both pupils are reactive.) ENT exam: Present: mucous membranes dry Neck exam: Present: normal inspection. Absent: tenderness Respiratory exam: Present: respiratory distress, rales, other (Tachypneic, JVD) Cardiovascular Exam: Present: normal rhythm, bradycardia, JVD GI/Abdominal exam: Present: distended. Absent: tenderness, guarding, rebound Extremities exam: Present: other ( left leg: Cold pulseless) Skin exam: Present: cyanosis, pallor Course Vital Signs 11/20/19 11/20/19 11/20/19 15:00 15:24 15:30 Pulse Rate 34 L Respiratory 23 Rate Blood Pressure 103/69 113/30 117/53 O2 Sat by Pulse 90 L Oximetry 11/20/19 11/20/19 11/20/19 15:39 15:41 15:45 Pulse Rate Respiratory Rate Blood Pressure 77/63 88/62 97/67 O2 Sat by Pulse Oximetry 11/20/19 11/20/19 11/20/19 15:55 16:01 16:10 Pulse Rate Respiratory Rate Blood Pressure 170/111 183/86 121/59 O2 Sat by Pulse Oximetry 11/20/19 16:20 Pulse Rate Respiratory Rate Blood Pressure 100/34 O2 Sat by Pulse Oximetry - Reevaluation(s) Reevaluation #1: 11/20/19 1501 Case immediately discussed with vascular surgery on-call Dr. Khan, as well as cardiology on-call Dr. Handy EKG Findings - EKG Comments: EKG Findings:: EKG: Junctional bradycardia low voltage, ST segment elevation in the inferior leads as well as V3 with reciprocal depression in aVL and V6, rate of 48, CA interval 80, QRS duration 112, QTC 465 Procedures - Central Line Placement Right IJ Consent Obtained: emergent situation Patient Placed on Monitor/Pulse Ox: Yes MD Prep: mask Central Line Prep: Chlorhexidine scrub Ultrasound Used for Placement: Yes Central Line Lumen Inserted: triple Bloods Obtained for Lab: Yes Central Line Position: good blood return, all ports aspirated, flushed, capped, sutured in place with 3-0 nylon Dressing Applied: Tegaderm Post Procedure X-Ray: tip of catheter in good position Patient Tolerated Procedure: well Complications: none - Intubation Sedative: Versed Mg Given: 5 Paralytic: Rocuronium Mg Given: 50 Laryngoscope: Sandip Size: 3 ET Tube Size: 7.5 ET Tube Uncuffed: No Tube Secured Depth (cm): 24 Tube Secured Location: lips Tube Placement Confirmation: visualized tube passing through cords, equal breath sounds bilaterally, no breath sounds over epigastrium, confirmation by capnometry Patient Tolerated Procedure: well Intubation Complications: none Medical Decision Making - Medical Decision Making 64 yo male presenting critically ill. Patient is evaluated at the time of arrival by EMS. He has a cold and pulseless left leg. He has an EKG showed a junctional rhythm with ST segment elevation. I immediately initiated the patient on high-dose heparin, gave calcium gluconate and fluid bolus. I discussed case with vascular surgery and cardiology. Cardiology recommends aggressive management of the left leg, no management at this time for junctional rhythm and ST segment elevation as this is the sequelae of pulseless left leg. I agree with this, I feel that is present it is related to acidosis and hyperkalemia rather than acute AR. Patient immediately begins to deteriorate including worsening of his bradycardia and increased tachypnea. He's intubated, central line is placed. He started on bicarbonate, epinephrine, was given atropine. All attempts are made to resuscitate this patient. Please review medical record for exact medical treatments. He is evaluated by vascular surgery with very low likelihood of surviving operative intervention. Decision is made with family at bedside to make this patient Comfort Care. This decision was made with myself, nursing staff, vascular surgery and the patient's family. Patient was extubated given morphine for comfort and immediately became asystolic and apneic. Time of is called at 1638. - Lab Data Result diagrams: 11/20/19 15:01 11/20/19 15: Lab Results 11/20/19 11/20/19 11/20/19 Range/Units 15:01 15: 15: WBC 18.9 H (3.8-10.6) k/uL RBC 3.45 L (4.30-5.90) m/uL Hgb 11.2 L (13.0-17.5) gm/dL Hct 37.2 L (39.0-53.0) % MCV 107.8 H D (80.0-100.0) fL MCH 32.3 (25.0-35.0) pg MCHC 30.0 L (31.0-37.0) g/dL RDW 14.2 (11.5-15.5) % Plt Count 233 (150-450) k/uL Neutrophils % 82 % Lymphocytes % 11 % Monocytes % 4 % Eosinophils % 1 % Basophils % 1 % Neutrophils # 15.6 H (1.3-7.7) k/uL Lymphocytes # 2.0 (1.0-4.8) k/uL Monocytes # 0.7 (0-1.0) k/uL Eosinophils # 0.1 (0-0.7) k/uL Basophils # 0.2 (0-0.2) k/uL Manual Slide Review Performed Hypochromasia Marked Poikilocytosis (manual Present Macrocytosis Marked A PT (9.0-12.0) sec INR (<1.2) APTT (22.0-30.0) sec Sodium 118 L* (137-145) mmol/L Potassium 5.7 H (3.5-5.1) mmol/L Chloride 84 L (98-107) mmol/L Carbon Dioxide 6 L* (22-30) mmol/L Anion Gap 28 mmol/L BUN 19 (9-20) mg/dL Creatinine 2.73 H (0.66-1.25) mg/dL Est GFR (CKD-EPI)AfAm 27 (>60 ml/min/1.73 sqM) Est GFR (CKD-EPI)NonAf 23 (>60 ml/min/1.73 sqM) Glucose 81 (74-99) mg/dL Plasma Lactic Acid Bandar 15.1 H* (0.7-2.0) mmol/L Calcium 8.0 L (8.4-10.2) mg/dL Magnesium 3.3 H (1.6-2.3) mg/dL Total Bilirubin 0.7 (0.2-1.3) mg/dL AST 355 H (17-59) U/L ALT 88 H (4-49) U/L Alkaline Phosphatase 90 (38-126) U/L Troponin I (0.000-0.034) ng/mL NT-Pro-B Natriuret Pep pg/mL Total Protein 6.7 (6.3-8.2) g/dL Albumin 3.2 L (3.5-5.0) g/dL TSH 3.190 (0.465-4.680) mIU/L 11/20/19 11/20/19 11/20/19 Range/Units 15:01 15:01 15:01 WBC (3.8-10.6) k/uL RBC (4.30-5.90) m/uL Hgb (13.0-17.5) gm/dL Hct (39.0-53.0) % MCV (80.0-100.0) fL MCH (25.0-35.0) pg MCHC (31.0-37.0) g/dL RDW (11.5-15.5) % Plt Count (150-450) k/uL Neutrophils % % Lymphocytes % % Monocytes % % Eosinophils % % Basophils % % Neutrophils # (1.3-7.7) k/uL Lymphocytes # (1.0-4.8) k/uL Monocytes # (0-1.0) k/uL Eosinophils # (0-0.7) k/uL Basophils # (0-0.2) k/uL Manual Slide Review Hypochromasia Poikilocytosis (manual Macrocytosis PT 12.8 H (9.0-12.0) sec INR 1.3 H (<1.2) APTT 41.0 H (22.0-30.0) sec Sodium (137-145) mmol/L Potassium (3.5-5.1) mmol/L Chloride (98-107) mmol/L Carbon Dioxide (22-30) mmol/L Anion Gap mmol/L BUN (9-20) mg/dL Creatinine (0.66-1.25) mg/dL Est GFR (CKD-EPI)AfAm (>60 ml/min/1.73 sqM) Est GFR (CKD-EPI)NonAf (>60 ml/min/1.73 sqM) Glucose (74-99) mg/dL Plasma Lactic Acid Bandar (0.7-2.0) mmol/L Calcium (8.4-10.2) mg/dL Magnesium (1.6-2.3) mg/dL Total Bilirubin (0.2-1.3) mg/dL AST (17-59) U/L ALT (4-49) U/L Alkaline Phosphatase (38-126) U/L Troponin I 5.780 H* (0.000-0.034) ng/mL NT-Pro-B Natriuret Pep 76651 pg/mL Total Protein (6.3-8.2) g/dL Albumin (3.5-5.0) g/dL TSH (0.465-4.680) mIU/L Critical Care Time Critical Care Time: No Total Critical Care Time: 95 Disposition Clinical Impression: Peripheral vascular disease, Asystole Narrative: Patient from the metabolic consequences of a arterial occlusion to the left leg. Overwhelming acidosis, junctional bradycardia, asystole, lactic acidosis. Disposition: Condition: Undetermined Is patient prescribed a controlled substance at d/c from ED?: No Referrals: Jm Harrell DO [Primary Care Provider] - 1-2 days Time of Disposition: 16:38 Preliminary Cause of : Peripheral vascular disease, arterial occlusion of the left leg
[2019-11-21] MEDS ORDERED: VANCOMYCIN 1,500 MG in SODIUM CHLORIDE 0.9% 250 ML IVPB ONE (12:00)
--- NOTE | 2019-11-21 15:14 | P.HPIM ---
History of Present Illness H&P Date: 11/20/19 Chief Complaint: Left leg discoloration Patient is a 64-year-old male with a known history of peripheral vascular disease and history of fem-pop bypass with stent placement and amputation of right fourth and fifth toes in November 2017, left sided renal vascular disease and is scheduled for angioplasty follows with Dr. Abdul is noted patient due to bilateral lower extremity wounds was brought to the hospital by his family due to progressively worsening left lower extremity swelling, mottling of the skin and cold to touch worsening for the past 2 days. Patient was seen by wound careat home and was told his to take him to ER. EMS was called and patient was brought to the hospital. While in the emergency room patient became more confused and hypotensive and unable to protect his airway. Central line was placed and patient was intubated. Patient was given antibiotics no cough vancomycin and cefepime. WBC 18.9, hemoglobin 11.2, sodium 118, potassium 5.7 and bicarb is 6, lactic acid 15.1 and troponin 5.78 Elevated AST and ALT, creatinine level II.73 BNP 18 300 EKG showed marked sinus bradycardia with heart rate 38 Chest x-ray showed cardiomegaly with basilar atelectasis or early infiltrate correlate clinically. Bilateral pleural base thickening greater within the left lower lobe. Standard PA and lateral views of the chest would be obtained on a short-term basis. Review of Systems Review of systems could not be obtained from the patient. Past Medical History Past Medical History: Hypertension, Vascular Disorder Additional Past Medical History / Comment(s): PVD, Wounds carmen feet History of Any Multi-Drug Resistant Organisms: None Reported Past Surgical History: Heart Catheterization, Hernia Repair Additional Past Surgical History / Comment(s): Wound center pt. Right axillary cyst removed, arteriogram, fissure corrected between bladder and colon. FEM POP BYPASS, 3 STENTS, AMPUTATION 4TH AND 5TH TOES RIGHT FOOT 12/08/17, recent debridement in & December 2017. Past Anesthesia/Blood Transfusion Reactions: No Reported Reaction Past Psychological History: No Psychological Hx Reported Smoking Status: Current every day smoker - Past Family History Father Family Medical History: Myocardial Infarction ([place]) Additional Family Medical History / Comment(s): . Mother Family Medical History: Cancer Brother(s) Family Medical History: Cancer Additional Family Medical History / Comment(s): PANCREATIC CANCER Medications and Allergies Home Medications Medication Instructions Recorded Confirmed Type Metoprolol Tartrate [Lopressor] 25 mg PO QAM 10/14/14 09/30/19 History Garlic 1 tab PO QAM 03/02/15 09/25/19 History Milk Thistle (500 Mg 1 tab PO QAM 03/02/15 09/25/19 History Multivitamin [Men's Multi-Vitamin] 1 tab PO QAM 03/02/15 09/25/19 History Acetaminophen Tab [Tylenol] 1,000 mg PO Q4HR 10/11/17 09/30/19 History Furosemide [Lasix] 20 mg PO DAILY 12/20/17 09/30/19 History Atorvastatin [Lipitor] 20 mg PO DAILY 05/30/18 09/30/19 History Amitriptyline HCl 50 mg PO DAILY 09/25/19 09/30/19 History Aspirin [Adult Low Dose Aspirin EC] 81 mg PO DAILY 09/25/19 09/30/19 History Pregabalin [Lyrica] 200 mg PO TID #90 capsule 11/12/19 Rx Allergies Allergy/AdvReac Type Severity Reaction Status Date / Time No Known Allergies Allergy Verified 09/25/19 08:30 Physical Exam Vitals: Vital Signs Pulse Resp BP Pulse Ox 11/20/19 16:20 100/34 11/20/19 16:10 121/59 11/20/19 16:01 183/86 11/20/19 15:55 170/111 11/20/19 15:45 97/67 11/20/19 15:41 88/62 11/20/19 15:39 77/63 11/20/19 15:30 117/53 11/20/19 15:24 113/30 11/20/19 15:00 34 L 23 103/69 90 L Intake and Output 11/20/19 11/20/19 11/20/19 06:59 14:59 22:59 Other: Weight 90.718 kg PHYSICAL EXAMINATION: Patient is currently lethargic and obtunded. Intubated... HEENT: Normocephalic. Neck is supple. Pupils reactive. Nostrils clear. Oral cavity is moist. Ears reveal no drainage. Neck reveals no JVD, carotid bruits, or thyromegaly. CHEST EXAMINATION: Trachea is central. Symmetrical expansion. Bibasilar diminished air entry. Lung downey clear to auscultation and percussion. CARDIAC: Normal S1, S2 with no gallops. No murmurs ABDOMEN: Soft. Bowel sounds normal. No organomegaly. No abdominal bruits. Extremities: Bilateral lower extremity edema. Left lower activity swelling, cold to touch and mottled skin up to thigh and lower abdomen. Cyanotic. Neurologically patient is currently obtunded. Could not be assessed Skin: No rash. Patient does have skin lesions as above. Psychiatric: Could not be assessed at this time Musculoskeletal: No joint swelling or deformity. Results CBC & Chem 7: 11/20/19 15:01 11/20/19 15: Labs: Abnormal Lab Results - Last 24 Hours (Table) 11/20/19 11/20/19 11/20/19 Range/Units 15: 15: 15:01 WBC 18.9 H (3.8-10.6) k/uL RBC 3.45 L (4.30-5.90) m/uL Hgb 11.2 L (13.0-17.5) gm/dL Hct 37.2 L (39.0-53.0) % MCV 107.8 H D (80.0-100.0) fL MCHC 30.0 L (31.0-37.0) g/dL Neutrophils # 15.6 H (1.3-7.7) k/uL Macrocytosis Marked A PT (9.0-12.0) sec INR (<1.2) APTT (22.0-30.0) sec Sodium 118 L* (137-145) mmol/L Potassium 5.7 H (3.5-5.1) mmol/L Chloride 84 L (98-107) mmol/L Carbon Dioxide 6 L* (22-30) mmol/L Creatinine 2.73 H (0.66-1.25) mg/dL Plasma Lactic Acid Bandar 15.1 H* (0.7-2.0) mmol/L Calcium 8.0 L (8.4-10.2) mg/dL Magnesium 3.3 H (1.6-2.3) mg/dL AST 355 H (17-59) U/L ALT 88 H (4-49) U/L Troponin I (0.000-0.034) ng/mL Albumin 3.2 L (3.5-5.0) g/dL 11/20/19 11/20/19 Range/Units 15:01 15:01 WBC (3.8-10.6) k/uL RBC (4.30-5.90) m/uL Hgb (13.0-17.5) gm/dL Hct (39.0-53.0) % MCV (80.0-100.0) fL MCHC (31.0-37.0) g/dL Neutrophils # (1.3-7.7) k/uL Macrocytosis PT 12.8 H (9.0-12.0) sec INR 1.3 H (<1.2) APTT 41.0 H (22.0-30.0) sec Sodium (137-145) mmol/L Potassium (3.5-5.1) mmol/L Chloride (98-107) mmol/L Carbon Dioxide (22-30) mmol/L Creatinine (0.66-1.25) mg/dL Plasma Lactic Acid Bandar (0.7-2.0) mmol/L Calcium (8.4-10.2) mg/dL Magnesium (1.6-2.3) mg/dL AST (17-59) U/L ALT (4-49) U/L Troponin I 5.780 H* (0.000-0.034) ng/mL Albumin (3.5-5.0) g/dL Thrombosis Risk Factor Assmnt - DVT/VTE Prophylaxis DVT/VTE Prophylaxis: Pharmacologic Prophylaxis ordered Assessment and Plan Assessment: Critical left lower extremity ischemia with mottling of skin and cold to touch. Acute non-ST elevated [place] with elevated troponin level Acute hypoxic respiratory failure requiring mechanical ventilator Severe lactic acidosis secondary to ischemia Hyponatremia AG Metabolic acidosis Possible left lower lobe pneumonia Acute kidney injury likely prerenal History of fem-pop bypass Severe peripheral vascular disease History of right lower extremity angioplasty Ongoing nicotine addiction Bilateral lower extremity feet wound Plan: Patient is currently mechanically ventilated. Continue with IV hydration and broad-spectrum antibiotics. Vascular surgery and cardiology was consulted for immediate evaluation. Patient was started on bicarb drip. Discussed with the family regarding prognosis and further recommendations based on the clinical course. Prognosis is poor at this time. Time with Patient: Greater than 30
--- NOTE | 2019-11-22 18:25 | P.DS ---
Providers Expected date of discharge: 11/20/19 Consults: 11/20/19 15:15 Consult Physician Stat Consulting Provider: Get Khan Consult Reason/Comments: Cold leg Do you want consulting provider notified?: Already Contacted 11/20/19 15:16 Consult Physician Urgent Consulting Provider: Dimitris Love Consult Reason/Comments: ICU Do you want consulting provider notified?: Already Contacted Primary care physician: Jm Harrell Hospital Course: Diagnosis Critical left lower extremity ischemia with mottling of skin and cold to touch. Acute non-ST elevated [place] with elevated troponin level Acute hypoxic respiratory failure requiring mechanical ventilator Severe lactic acidosis secondary to ischemia Hyponatremia AG Metabolic acidosis Possible left lower lobe pneumonia Acute kidney injury likely prerenal History of fem-pop bypass Severe peripheral vascular disease History of right lower extremity angioplasty Ongoing nicotine addiction Bilateral lower extremity feet wound Hospital Course. Patient wa mechanically ventilated. Continue dwith IV Heparin, hydration and broad-spectrum antibiotics. Vascular surgery and cardiology was consulted for immediate evaluation. Patient was started on bicarb drip. Prognosis is poor. Pt. was in the ER. Family has been notified. Please see H&P for full details. Patient Condition at Discharge: Undetermined Plan - Discharge Summary New Discharge Prescriptions: No Action Metoprolol Tartrate [Lopressor] 25 mg PO QAM Multivitamin [Men's Multi-Vitamin] 1 tab PO QAM Milk Thistle (500 Mg 1 tab PO QAM Garlic 1 tab PO QAM Acetaminophen Tab [Tylenol] 1,000 mg PO Q4HR Furosemide [Lasix] 20 mg PO DAILY Atorvastatin [Lipitor] 20 mg PO DAILY Aspirin [Adult Low Dose Aspirin EC] 81 mg PO DAILY Amitriptyline HCl 50 mg PO DAILY Pregabalin [Lyrica] 200 mg PO TID #90 capsule Discharge Medication List Metoprolol Tartrate [Lopressor] 25 mg PO QAM 10/14/14 [History] Garlic 1 tab PO QAM 03/02/15 [History] Milk Thistle (500 Mg 1 tab PO QAM 03/02/15 [History] Multivitamin [Men's Multi-Vitamin] 1 tab PO QAM 03/02/15 [History] Acetaminophen Tab [Tylenol] 1,000 mg PO Q4HR 10/11/17 [History] Furosemide [Lasix] 20 mg PO DAILY 12/20/17 [History] Atorvastatin [Lipitor] 20 mg PO DAILY 05/30/18 [History] Amitriptyline HCl 50 mg PO DAILY 09/25/19 [History] Aspirin [Adult Low Dose Aspirin EC] 81 mg PO DAILY 09/25/19 [History] Pregabalin [Lyrica] 200 mg PO TID #90 capsule 11/12/19 [Rx] Follow up Appointment(s)/Referral(s): Jm Harrell DO [Primary Care Provider] - 1-2 days Discharge Disposition: - Preliminary Cause of Preliminary Cause of : Acute non-ST elevated [place]
== END 2019-11-20 17:45 | disposition expired ==
LOC: EC 14:42
DX: I46.9 Cardiac arrest, cause unspecified (principal); I73.9 Peripheral vascular disease, unspecified; R94.31 Abnormal electrocardiogram [ECG] [EKG]; E87.2 Acidosis; E87.5 Hyperkalemia; R00.1 Bradycardia, unspecified; R06.82 Tachypnea, not elsewhere classified; R14.0 Abdominal distension (gaseous); L97.929 Non-pressure chronic ulcer of unspecified part of left lower leg with unspecified severity; I10 Essential (primary) hypertension; F17.200 Nicotine dependence, unspecified, uncomplicated; Z79.82 Long term (current) use of aspirin; Z79.891 Long term (current) use of opiate analgesic; Z79.899 Other long term (current) drug therapy; Z82.49 Family history of ischemic heart disease and other diseases of the circulatory system; Z53.8 Procedure and treatment not carried out for other reasons
CPT/HCPCS: 99291 ×2; 99292 ×2; 36556 ×2; 31500 ×2; 96365 ×2; 96375 ×4; 96376 ×2; 36415; 93005; 83880; 80053; 83605; 83735; 84443; 84484; 85025; 85610; 85730; 87040; 71045; J0171 ×2; J2270; J1644 ×2; J0461; J2250